=== PATIENT | male | born 1965 | race Caucasian/White ===

== ENCOUNTER 2023-07-05 15:47 | Observation (INO) ==
--- NOTE | 2023-07-05 16:14 | ED Triage Note ---
Date of Service July 05, 2023 History of Present Illness This patient was briefly evaluated while in triage. An abbreviated physical exam was performed. This patient is a 58-year-old Male who presents to the ED for evaluation of low hemoglobin. He was recently at [facility] for the same. He states he followed up with his PCP and they called him today to let him know his counts were low. He states he has been fatigue. Physical Exam VITALS: Vitals are noted on the nurse's note and reviewed by myself. GENERAL: This is a 58-year-old male, in no acute distress, well-developed well- nourished. SKIN: The skin was without rashes. EYES: Pupils equal round and reactive to light and accommodation. MOUTH: Mucous membranes moist. HEART: Regular rate and rhythm without murmurs gallops or rubs. LUNGS: Clear to auscultation bilaterally without wheezes, rales or rhonchi. NEURO: Patient was alert and oriented to person place and time. Initial orders for labs and / or imaging were placed and patient was placed in the waiting area until a bed is available. Please see further documentation for the full ED course. MDM / Impression Impression Impression: Acute GI bleeding, Symptomatic anemia
--- NOTE | 2023-07-05 17:29 | XRay Report ---
XR chest 1V portable HISTORY: 58 years-old Male Weakness COMPARISON: None TECHNIQUE: PA view of the chest FINDINGS: The cardiomediastinal and hilar silhouettes are within normal limits. Atherosclerosis of the aorta. N o pneumothorax, pleural effusion, airspace consolidation or pulmonary edema. Bones appear grossly int act. Mild linear scarring versus atelectasis of the left lung base. IMPRESSION: No acute process. ACT 112: Negative or not required by law. The above report was generated using voice recognition software. It may contain grammatical, syntax o r spelling errors. Electronically signed by: Stevan Buckley M.D. 07/05/2023 5:28 PM
[2023-07-05 18:37] LABS: Hematocrit (blood only) 23.3 % (42.0-52.0); Hemoglobin 6.6 g/dl (14.0-18.0); Mean Corpuscular Hemoglobin 18.3 pg (25.0-34.0); Mean Corpuscular Hgb Conc 28.3 g/dL (32.0-36.0); Mean Corpuscular Volume 64.7 fL (80.0-100.0); Mean Platelet Volume 8.3 fL (9.4-12.4); Platelet Count 334 K/uL (130-400); RDW Coefficient of Variation 22.5 % (11.5-14.5); RDW Standard Deviation 51.4 fL (36.4-46.3); White Blood Count 7.74 K/ul (4.8-10.8)
[2023-07-05 18:47] LABS: Albumin Globulin Ratio 1.3 (0.9-2); Albumin Level 4.6 gm/dl (3.4-5.0); BUN Creatinine Ratio 16.5 (10-20); Bilirubin,Total 0.8 mg/dl (0.2-1.0); Calcium 9.2 mg/dl (8.6-10.3); Creatinine Clr Calc Pharmacy 68.9 ml/min; Est GFR (African American) 85.1 ml/min; Est GFR (Non-African American) 73.4 ml/min; Globulin 3.5 gm/dl (2.5-4.0); Potassium 4.5 mmol/L (3.5-5.1); Total Protein 8.1 gm/dl (6.0-8.3)
[2023-07-05 18:56] LABS: Anisocytosis Present; Basophils # (auto) 0.09 K/uL (0.00-0.20); Basophils % (auto) 1.2 %; Eosinophils # (auto) 0.18 K/uL (0.00-0.50); Eosinophils % (auto) 2.3 %; Hypochromasia Present; Immature Granulocytes # (auto) 0.01 K/uL (0.01-0.20); Immature Granulocytes % (auto) 0.1 %; Lymphocytes # (auto) 1.61 K/uL (1.20-3.40); Lymphocytes % (auto) 20.8 %; Monocytes % (auto) 11.6 %; Neutrophils # (auto) 4.95 K/uL (1.40-6.50); Polychromasia 1+
[2023-07-05 19:05] LABS: Partial Thromboplastin Ratio 0.8; Partial Thromboplastin Time 23.2 Seconds (21.0-31.0)
[2023-07-05] MEDS ORDERED: SODIUM CHLORIDE 0.9% 250 ML IV PRN ×2 (19:26→23:00)
--- NOTE | 2023-07-05 19:30 | Emergency Department Note ---
Impression & Plan Acute GI bleeding, Symptomatic anemia ED Provider Note NAME: LYNETTE SOTO AGE: 58 SEX: M : 1965 ARRIVES VIA: Walk-In INFORMANT: Patient ED PROVIDER(S): Anatoliy Gay DO CHIEF COMPLAINT: low HGB HPI: Patient is a 58-year-old male who presents the ER for low hemoglobin referred in by his PCP. He admits to feeling lightheaded, weak, and rundown. He was called with a hemoglobin of 6. This occurred at the end of May. He denies any headache or change in vision. No chest pain or shortness of breath that is new. He notes he always has shortness of breath. No belly pain, nausea, vomiting, or diarrhea. No dysuria, urgency, or frequency. No other exacerbating or remitting factors. PAST MEDICAL HISTORY:See Below PAST SURGICAL HISTORY:See Below FAMILY HISTORY:See Below SOCIAL HISTORY:See Below HOME MEDICATIONS:See Below ALLERGIES:See Below VITALS:See Below PHYSICAL EXAMINATION: GENERAL: Sitting up in bed, alert, well appearing, well nourished, no distress, non-toxic EYE EXAM: normal conjunctiva. PERRL and EOM's grossly intact. OROPHARYNX: no exudate, no erythema, lips, buccal mucosa, and tongue normal and mucous membranes are moist NECK: supple, no nuchal rigidity, no adenopathy, non-tender LUNGS: Clear to auscultation. Normal chest wall mechanics HEART: no murmurs, S1 normal and S2 normal ABDOMEN: abdomen soft, non-tender, normo-active bowel sounds, no masses, no re bound or guarding. GI: Rectal heme positive UPPER EXTREMITIES: upper extremities are grossly normal. LOWER EXTREMITIES: No pitting edema. NEURO EXAM: Normal sensorium, cranial nerves II-XII grossly intact, normal speech, no gross weakness of arms, no gross weakness of legs. MEDICAL DECISION MAKING: Patient is a 58-year-old male who presents ER for the above-stated complaint. IV was established blood work was obtained. Labs show no significant leukocytosis. Mild anemia at 6.6. INR unremarkable. BMP along with LFTs and bilirubin was unremarkable. Alcohol was negative. Rectal was heme positive. Patient patient was typed and crossed and ordered 2 units of PRBCs. Updated bedside admitted to the hospital for further work-up. Discussed with Pt concerning signs and symptoms to watch out for. Pt was instructed to follow up with their PCP and discussed with the patient their option to return to the ED at anytime for persistent or worsening symptoms. The appropriate anticipatory guidance and out-patient management, including indications for return to the emergency department, were explained at length to the patient and understood. Triage Nursing notes reviewed. Limited review of prior medical records performed Vital Signs: reviewed and remarkable for no significant abnormalities Differential diagnosis: Differential diagnosis includes etiologies such as diverticulitis, diverticulosis, AVM, coagulopathy, colitis, inflammatory bowel disease, malignancy, Radha-Tena tear, esophagitis, peptic ulcer disease, variceal bleed, gastritis, epistaxis, fissure, hemorrhoids, as well as others were e ntertained. ER treatment provided: See below Diagnostics interpreted by me include EKG and cardiac monitoring as listed below: -Cardiac Monitoring: An order was placed for continuous cardiac monitoring. The monitor shows a rate of 70 with sinus rhythm. -ECG: none -Laboratory studies:Interpreted by me as stated above in MDM and shown below. Imaging studies: Xrays: As interpreted by me: Portable AP upright 1 view of the chest shows no focal infiltrate CTs show: none Consultation(s): As described in MDM Procedures:none Critical Care: I have personally spent 32 minutes of critical care time in the direct management of this patient. This includes bedside care, interpretation of diagnostic studies, and testing, discussion with consultants, patient, and family members, and other required patient management activities. This 32 minutes is in excess of all separately billable procedures. Past Med/Surg History Social History Smoking Status: Current some day smoker Hx Alcohol Use: Yes Hx Substance Use: No Preferred Language: Emirati Communication Ability: Effective Trial Attorney Required: No Beliefs That Will Affect Care: None Current Living Situation: Alone Feels Safe at Home: Yes Safety Concerns: Feels Safe At This Time Assistive Devices: None Allergies Allergies Allergy/AdvReac Type Severity Reaction Status Date / Time Iodinated Contrast Media Allergy Hives Verified 07/05/23 20:08 Home Meds Home Medications Medication Instructions Recorded Confirmed amlodipine 10 mg-benazepril 20 mg 1 cap PO QAM 07/05/23 07/05/23 capsule aspirin 81 mg tablet,delayed 81 mg PO DAILY 07/05/23 07/05/23 release atorvastatin 40 mg tablet 40 mg PO QAM 07/05/23 07/05/23 clopidogrel 75 mg tablet 75 mg PO DAILY 07/05/23 07/05/23 Results & Data (ED) Vital Signs Vital Signs - 24 hr 07/05/23 16:11 Temperature 36.8 C Temperature Source Temporal Artery Scan Pulse Rate 77 Respiratory Rate 18 Respiratory Effort / Characteristics Non-Labored Respiratory Depth Normal Blood Pressure 151/78 H Blood Pressure Mean 102 Pulse Oximetry 98 Oxygen Delivery Method Room Air Sepsis Recent Fever Within 48 Hours No Sepsis New/Unexplained Change in Mental Status No Sepsis Action Taken by Nursing No Action Required Laboratory Data 07/05/23 18:14 07/05/23 18:14 Lab Results 07/05/23 07/05/23 07/05/23 Range/Units 18:14 18:14 18:14 WBC 7.74 (4.8-10.8) K/ul RBC 3.60 L (4.70-6.10) M/uL Hgb 6.6 L* (14.0-18.0) g/dl Hct 23.3 L (42.0-52.0) % MCV 64.7 L (80.0-100.0) fL MCH 18.3 L (25.0-34.0) pg MCHC 28.3 L (32.0-36.0) g/dL RDW Std Deviation 51.4 H (36.4-46.3) fL RDW Coeff of Star 22.5 H (11.5-14.5) % Plt Count 334 (130-400) K/uL MPV 8.3 L (9.4-12.4) fL Immature Gran % (Auto) 0.1 % Neut % (Auto) 64.0 % Lymph % (Auto) 20.8 % [place] % (Auto) 11.6 % Eos % (Auto) 2.3 % Baso % (Auto) 1.2 % Reticulocyte % (Auto) (0.5-2.0) % Neut # (Auto) 4.95 (1.40-6.50) K/uL Lymph # (Auto) 1.61 (1.20-3.40) K/uL [place] # (Auto) 0.90 H (0.11-0.59) K/uL Eos # (Auto) 0.18 (0.00-0.50) K/uL Baso # (Auto) 0.09 (0.00-0.20) K/uL Reticulocyte # (0.02-0.10) 10^6/uL Immature Gran # (Auto) 0.01 (0.01-0.20) K/uL Polychromasia 1+ Hypochromasia Present Anisocytosis Present PT 11.0 (9.0-12.0) Seconds INR 1.0 (0.9-1.1) APTT 23.2 (21.0-31.0) Seconds PTT Ratio 0.8 Sodium (136-145) mmol/L Potassium (3.5-5.1) mmol/L Chloride (98-107) mmol/L Carbon Dioxide (21-32) mmol/L Anion Gap (3-11) BUN (6-23) mg/dl Creatinine (0.6-1.4) mg/dl Est Cr Clr Drug Dosing ml/min Est GFR ( Amer) ml/min Est GFR (Non-Af Amer) ml/min BUN/Creatinine Ratio (10-20) Glucose (70-99(Fasting)) mg/dl Calcium (8.6-10.3) mg/dl Magnesium (1.7-2.4) mg/dl Iron (35-175) mcg/dl Transferrin (200-360) mg/dl Ferritin (8-388) ng/ml Total Bilirubin (0.2-1.0) mg/dl AST (13-39) U/L ALT (7-52) U/L Alkaline Phosphatase (34-104) U/L Total Protein (6.0-8.3) gm/dl Albumin (3.4-5.0) gm/dl Globulin (2.5-4.0) gm/dl Albumin/Globulin Ratio (0.9-2) Vitamin B12 (180-914) pg/ml Folate (>5.38) ng/ml TSH (0.300-4.500) uIu/ml Ethyl Alcohol mg/dL (<10.0) mg/dl Blood Type A Positive Blood Type Recheck Antibody Screen NEGATIVE Crossmatch See Detail 07/05/23 07/05/23 07/05/23 Range/Units 18:14 19:48 19:55 WBC (4.8-10.8) K/ul RBC (4.70-6.10) M/uL Hgb (14.0-18.0) g/dl Hct (42.0-52.0) % MCV (80.0-100.0) fL MCH (25.0-34.0) pg MCHC (32.0-36.0) g/dL RDW Std Deviation (36.4-46.3) fL RDW Coeff of Star (11.5-14.5) % Plt Count (130-400) K/uL MPV (9.4-12.4) fL Immature Gran % (Auto) % Neut % (Auto) % Lymph % (Auto) % [place] % (Auto) % Eos % (Auto) % Baso % (Auto) % Reticulocyte % (Auto) (0.5-2.0) % Neut # (Auto) (1.40-6.50) K/uL Lymph # (Auto) (1.20-3.40) K/uL [place] # (Auto) (0.11-0.59) K/uL Eos # (Auto) (0.00-0.50) K/uL Baso # (Auto) (0.00-0.20) K/uL Reticulocyte # (0.02-0.10) 10^6/uL Immature Gran # (Auto) (0.01-0.20) K/uL Polychromasia Hypochromasia Anisocytosis PT (9.0-12.0) Seconds INR (0.9-1.1) APTT (21.0-31.0) Seconds PTT Ratio Sodium 133 L (136-145) mmol/L Potassium 4.5 (3.5-5.1) mmol/L Chloride 102 (98-107) mmol/L Carbon Dioxide 23 (21-32) mmol/L Anion Gap 8 (3-11) BUN 18 (6-23) mg/dl Creatinine 1.09 (0.6-1.4) mg/dl Est Cr Clr Drug Dosing 68.9 ml/min Est GFR ( Amer) 85.1 ml/min Est GFR (Non-Af Amer) 73.4 ml/min BUN/Creatinine Ratio 16.5 (10-20) Glucose 105 H (70-99(Fasting)) mg/dl Calcium 9.2 (8.6-10.3) mg/dl Magnesium 2.3 (1.7-2.4) mg/dl Iron 13 L (35-175) mcg/dl Transferrin 399 H (200-360) mg/dl Ferritin 3.2 L (8-388) ng/ml Total Bilirubin 0.8 (0.2-1.0) mg/dl AST 24 (13-39) U/L ALT 29 (7-52) U/L Alkaline Phosphatase 49 (34-104) U/L Total Protein 8.1 (6.0-8.3) gm/dl Albumin 4.6 (3.4-5.0) gm/dl Globulin 3.5 (2.5-4.0) gm/dl Albumin/Globulin Ratio 1.3 (0.9-2) Vitamin B12 (180-914) pg/ml Folate (>5.38) ng/ml TSH (0.300-4.500) uIu/ml Ethyl Alcohol mg/dL (<10.0) mg/dl Blood Type Blood Type Recheck A Positive Antibody Screen Crossmatch 07/05/23 07/05/23 07/05/23 Range/Units 19:55 19:55 19:55 WBC (4.8-10.8) K/ul RBC (4.70-6.10) M/uL Hgb (14.0-18.0) g/dl Hct (42.0-52.0) % MCV (80.0-100.0) fL MCH (25.0-34.0) pg MCHC (32.0-36.0) g/dL RDW Std Deviation (36.4-46.3) fL RDW Coeff of Star (11.5-14.5) % Plt Count (130-400) K/uL MPV (9.4-12.4) fL Immature Gran % (Auto) % Neut % (Auto) % Lymph % (Auto) % [place] % (Auto) % Eos % (Auto) % Baso % (Auto) % Reticulocyte % (Auto) 1.9 (0.5-2.0) % Neut # (Auto) (1.40-6.50) K/uL Lymph # (Auto) (1.20-3.40) K/uL [place] # (Auto) (0.11-0.59) K/uL Eos # (Auto) (0.00-0.50) K/uL Baso # (Auto) (0.00-0.20) K/uL Reticulocyte # 0.06 (0.02-0.10) 10^6/uL Immature Gran # (Auto) (0.01-0.20) K/uL Polychromasia Hypochromasia Anisocytosis PT (9.0-12.0) Seconds INR (0.9-1.1) APTT (21.0-31.0) Seconds PTT Ratio Sodium (136-145) mmol/L Potassium (3.5-5.1) mmol/L Chloride (98-107) mmol/L Carbon Dioxide (21-32) mmol/L Anion Gap (3-11) BUN (6-23) mg/dl Creatinine (0.6-1.4) mg/dl Est Cr Clr Drug Dosing ml/min Est GFR ( Amer) ml/min Est GFR (Non-Af Amer) ml/min BUN/Creatinine Ratio (10-20) Glucose (70-99(Fasting)) mg/dl Calcium (8.6-10.3) mg/dl Magnesium (1.7-2.4) mg/dl Iron (35-175) mcg/dl Transferrin (200-360) mg/dl Ferritin (8-388) ng/ml Total Bilirubin (0.2-1.0) mg/dl AST (13-39) U/L ALT (7-52) U/L Alkaline Phosphatase (34-104) U/L Total Protein (6.0-8.3) gm/dl Albumin (3.4-5.0) gm/dl Globulin (2.5-4.0) gm/dl Albumin/Globulin Ratio (0.9-2) Vitamin B12 270 (180-914) pg/ml Folate 14.61 (>5.38) ng/ml TSH (0.300-4.500) uIu/ml Ethyl Alcohol mg/dL < 10.0 (<10.0) mg/dl Blood Type Blood Type Recheck Antibody Screen Crossmatch 07/05/23 Range/Units 19:55 WBC (4.8-10.8) K/ul RBC (4.70-6.10) M/uL Hgb (14.0-18.0) g/dl Hct (42.0-52.0) % MCV (80.0-100.0) fL MCH (25.0-34.0) pg MCHC (32.0-36.0) g/dL RDW Std Deviation (36.4-46.3) fL RDW Coeff of Star (11.5-14.5) % Plt Count (130-400) K/uL MPV (9.4-12.4) fL Immature Gran % (Auto) % Neut % (Auto) % Lymph % (Auto) % [place] % (Auto) % Eos % (Auto) % Baso % (Auto) % Reticulocyte % (Auto) (0.5-2.0) % Neut # (Auto) (1.40-6.50) K/uL Lymph # (Auto) (1.20-3.40) K/uL [place] # (Auto) (0.11-0.59) K/uL Eos # (Auto) (0.00-0.50) K/uL Baso # (Auto) (0.00-0.20) K/uL Reticulocyte # (0.02-0.10) 10^6/uL Immature Gran # (Auto) (0.01-0.20) K/uL Polychromasia Hypochromasia Anisocytosis PT (9.0-12.0) Seconds INR (0.9-1.1) APTT (21.0-31.0) Seconds PTT Ratio Sodium (136-145) mmol/L Potassium (3.5-5.1) mmol/L Chloride (98-107) mmol/L Carbon Dioxide (21-32) mmol/L Anion Gap (3-11) BUN (6-23) mg/dl Creatinine (0.6-1.4) mg/dl Est Cr Clr Drug Dosing ml/min Est GFR ( Amer) ml/min Est GFR (Non-Af Amer) ml/min BUN/Creatinine Ratio (10-20) Glucose (70-99(Fasting)) mg/dl Calcium (8.6-10.3) mg/dl Magnesium (1.7-2.4) mg/dl Iron (35-175) mcg/dl Transferrin (200-360) mg/dl Ferritin (8-388) ng/ml Total Bilirubin (0.2-1.0) mg/dl AST (13-39) U/L ALT (7-52) U/L Alkaline Phosphatase (34-104) U/L Total Protein (6.0-8.3) gm/dl Albumin (3.4-5.0) gm/dl Globulin (2.5-4.0) gm/dl Albumin/Globulin Ratio (0.9-2) Vitamin B12 (180-914) pg/ml Folate (>5.38) ng/ml TSH 2.380 (0.300-4.500) uIu/ml Ethyl Alcohol mg/dL (<10.0) mg/dl Blood Type Blood Type Recheck Antibody Screen Crossmatch Administered Medications Sodium Chloride (Nss) 1,000 mls @ 60 mls/hr IV .[id number] ONE Stop: 07/06/23 12:18 Last Admin: 07/05/23 21:31 Dose: 60 mls/hr Documented By: LAURA Pantoprazole Sodium 40 mg/ (Dextrose) 100 mls @ 20 mls/hr IV Q5H STEPHANIE Stop: 08/04/23 20:59 Last Admin: 07/05/23 22:14 Dose: 8 mg/hr, 20 mls/hr Documented By: LAURA Discontinued Medications Thiamine HCl 100 mg/ Syringe 10 mls @ 2 mls/min IV NOW STA Stop: 07/05/23 19:47 Last Admin: 07/05/23 20:15 Dose: 2 mls/min Documented By: LAURA Pantoprazole Sodium 80 mg/ (Dextrose) 120 mls @ 400 mls/hr IV NOW ONE Stop: 07/05/23 20:57 Last Infusion: 07/05/23 22:03 Dose: 0 mls/hr Documented By: Admin: 07/05/23 21:32 Dose: 400 mls/hr Documented By: LAURA Imaging Data Radiologist's Impression: Chest X-Ray 07/05/23 16:14 XR chest 1V portable HISTORY: 58 years-old Male Weakness COMPARISON: None TECHNIQUE: PA view of the chest FINDINGS: The cardiomediastinal and hilar silhouettes are within normal limits. Atherosclerosis of the aorta. No pneumothorax, pleural effusion, airspace consolidation or pulmonary edema. Bones appear grossly intact. Mild linear scarring versus atelectasis of the left lung base. IMPRESSION: No acute process. ACT 112: Negative or not required by law. The above report was generated using voice recognition software. It may contain grammatical, syntax or spelling errors. Electronically signed by: Stevan Buckley M.D. 07/05/2023 5:28 PM Discharge Plan Visit Data Chief Complaint: Referred by Doctor Stated Complaint: REF BY ED Provider: Anatoliy Gay Discharge Problem: Acute GI bleeding, Symptomatic anemia Patient Disposition: Admitted As Inpatient Discharge Instructions Interventions: ED Discharge Assessment Last Done: 07/05/23 22:22
[2023-07-05] MEDS ORDERED: SODIUM CHLORIDE 0.9% 1,000 ML IV ONE (19:39)
[2023-07-05] MEDS ORDERED: THIAMINE HCL 100 MG in SYRINGE 9 ML IV STA (19:43)
[2023-07-05 20:19] LABS: Reticulocyte % 1.9 % (0.5-2.0); Reticulocytes # 0.06 10^6/uL (0.02-0.10)
[2023-07-05 20:31] LABS: Magnesium 2.3 mg/dl (1.7-2.4)
[2023-07-05] MEDS ORDERED: PANTOPRAZOLE BOLUS/DRIP IV STA (20:40)
[2023-07-05] MEDS ORDERED: PANTOprazole 80 MG in DEXTROSE 5% 100 ML IV ONE (20:40)
--- NOTE | 2023-07-05 20:42 | History & Physical Report ---
Date of Service July 05, 2023 Assessment & Plan (1) Symptomatic anemia: Plan: Acute on chronic anemia, hemoglobin drop from baseline Secondary to UGIB Positive FOBT at the ER. History PAD status post recent surgery on antiplatelet Rx hypertension, stable hyperlipidemia, on statin Rx hx HCV status post treatment, patient unaware of diagnosis/treatment documented in outpatient records ongoing alcohol abuse past tobacco abuse Medical telemetry Anemia work-up Transfuse PRBC to maintain hemoglobin of at least 8 Appropriate to hold antiplatelet Rx for now given GI bleed causing symptomatic anemia IV PPI GI consult re: UGIB N.p.o. until patient seen by GI in anticipation of endoscopy DT precautions, initiate SARA S if with signs of alcohol withdrawal DVT prophylaxis. TEDS (chemical prophylaxis contraindicated with GI bleed, SCDs contraindicated with PAD) DNR Patient daughter requesting updates providers. Gerard Mckeon, contact #[phone]. Text document was generated using [employer] voice recognition software. It may contain grammatical or spelling errors. Kindly contact undersigned for clarification of any documentation item in question. History of Present Illness Chief Complaint: Abnormal blood work Primary Care Provider: Russ Ricks MD History obtained from patient, family, and records. Medical history significant for PAD status post surgery, hypertension, hyperlipidemia, hx HCV status post treatment as per records (patient unaware of diagnosis), chronic anemia (baseline hemoglobin of 7-8), ongoing alcohol abuse, past tobacco abuse. Recent confinement at [facility] under Vascular Surgery service for PVD status post left femoral endarterectomy with pericardial patch angioplasty and subsequent stent placement. 1 unit packed RBC transfused with postprocedural hemoglobin of 6.4. Hemoglobin 8 at time of discharge. Plavix added to patient's aspirin on discharge. Future vascular procedure for right lower extremity contemplated as per patient. Patient did not feel well after first dose of Plavix. Fatigue with intermittent dark stools. No belly pain, no headache. Patient did not mention symptoms to vascular surgeon on follow-up visit last month. Patient seen at PCPs office last June 27 for follow-up visit. Patient verbalized 'feeling off'. Outpatient labs ordered by PCP with hemoglobin noted to be 6.3. Outpatient provider unable to reach patient regarding blood work over the phone as per documentation. Outpatient Arrangements for outpatient colonoscopy made (tentative schedule October,). Outpatient hematology evaluation contemplated. Patient finally returned PCP office call today. Patient directed to ER with patient verbalizing dizziness complaints. Positive FOBT at the ER. Medical History as above Surgical History : Vascular procedures, hernia repair, tonsillectomy, orbital trauma surgery Family History : Heart disease Personal/Social history : Past tobacco abuse, alcohol abuse, [employer] maintenance work Allergies Allergy/AdvReac Type Severity Reaction Status Date / Time Iodinated Contrast Media Allergy Hives Verified 07/05/23 20:08 Home Medications Medication Instructions Recorded Confirmed Type amlodipine 10 mg-benazepril 20 mg 1 cap PO QAM 07/05/23 07/05/23 History capsule aspirin 81 mg tablet,delayed 81 mg PO DAILY 07/05/23 07/05/23 History release atorvastatin 40 mg tablet 40 mg PO QAM 07/05/23 07/05/23 History clopidogrel 75 mg tablet 75 mg PO DAILY 07/05/23 07/05/23 History Past Med/Surg History Social History Smoking Status: Current some day smoker Hx Alcohol Use: Yes Hx Substance Use: No Preferred Language: Occitan Communication Ability: Effective Revenue Liaison Required: No Beliefs That Will Affect Care: None Current Living Situation: Alone Feels Safe at Home: Yes Safety Concerns: Feels Safe At This Time Assistive Devices: None Review of Systems Review of Systems: As per HPI, all other systems reviewed and negative Physical Exam Physical Exam: GENERAL: Comfortable, pleasant, no respiratory distress SKIN: Pallor, warm HEENT: [place] palpebral conjunctivae, no ptosis, dry buccal mucosa NECK : Supple, no tenderness CHEST : The bedside once, no tenderness HEART : RRR, no obvious murmurs ABDOMEN: Some distention, nontender EXTREMITIES : No LE swelling/tenderness, no other conspicuous deformities noted NEUROLOGIC : Coherent, no facial asymmetry, no other gross focality Results & Data Results & Data Vital Signs (Past 12 Hours) Vital Signs Temp Pulse Resp BP Pulse Ox O2 Del Method 07/05/23 16:11 36.8 C 77 18 151/78 H 98 Room Air Laboratory Results Laboratory Results WBC 7.74 K/ul (4.8-10.8) 07/05/23 18:14 RBC 3.60 M/uL (4.70-6.10) L 07/05/23 18:14 Hgb 6.6 g/dl (14.0-18.0) L* 07/05/23 18:14 Hct 23.3 % (42.0-52.0) L 07/05/23 18:14 MCV 64.7 fL (80.0-100.0) L 07/05/23 18:14 MCH 18.3 pg (25.0-34.0) L 07/05/23 18:14 MCHC 28.3 g/dL (32.0-36.0) L 07/05/23 18:14 RDW Std Deviation 51.4 fL (36.4-46.3) H 07/05/23 18:14 RDW Coeff of Star 22.5 % (11.5-14.5) H 07/05/23 18:14 Plt Count 334 K/uL (130-400) 07/05/23 18:14 MPV 8.3 fL (9.4-12.4) L 07/05/23 18:14 Immature Gran % (Auto) 0.1 % 07/05/23 18:14 Neut % (Auto) 64.0 % 07/05/23 18:14 Lymph % (Auto) 20.8 % 07/05/23 18:14 Angelina % (Auto) 11.6 % 07/05/23 18:14 Eos % (Auto) 2.3 % 07/05/23 18:14 Baso % (Auto) 1.2 % 07/05/23 18:14 Reticulocyte % (Auto) 1.9 % (0.5-2.0) 07/05/23 19:55 Neut # (Auto) 4.95 K/uL (1.40-6.50) 07/05/23 18:14 Lymph # (Auto) 1.61 K/uL (1.20-3.40) 07/05/23 18:14 Angelina # (Auto) 0.90 K/uL (0.11-0.59) H 07/05/23 18:14 Eos # (Auto) 0.18 K/uL (0.00-0.50) 07/05/23 18:14 Baso # (Auto) 0.09 K/uL (0.00-0.20) 07/05/23 18:14 Reticulocyte # 0.06 10^6/uL (0.02-0.10) 07/05/23 19:55 Immature Gran # (Auto) 0.01 K/uL (0.01-0.20) 07/05/23 18:14 Polychromasia 1+ 07/05/23 18:14 Hypochromasia Present 07/05/23 18:14 Anisocytosis Present 07/05/23 18:14 PT 11.0 Seconds (9.0-12.0) 07/05/23 18:14 INR 1.0 (0.9-1.1) 07/05/23 18:14 APTT 23.2 Seconds (21.0-31.0) 07/05/23 18:14 PTT Ratio 0.8 07/05/23 18:14 Sodium 133 mmol/L (136-145) L 07/05/23 18:14 Potassium 4.5 mmol/L (3.5-5.1) 07/05/23 18:14 Chloride 102 mmol/L (98-107) 07/05/23 18:14 Carbon Dioxide 23 mmol/L (21-32) 07/05/23 18:14 Anion Gap 8 (3-11) 07/05/23 18:14 BUN 18 mg/dl (6-23) 07/05/23 18:14 Creatinine 1.09 mg/dl (0.6-1.4) 07/05/23 18:14 Est Cr Clr Drug Dosing 68.9 ml/min 07/05/23 18:14 Est GFR ( Amer) 85.1 ml/min 07/05/23 18:14 Est GFR (Non-Af Amer) 73.4 ml/min 07/05/23 18:14 BUN/Creatinine Ratio 16.5 (10-20) 07/05/23 18:14 Glucose 105 mg/dl (70-99(Fasting)) H 07/05/23 18:14 Calcium 9.2 mg/dl (8.6-10.3) 07/05/23 18:14 Magnesium 2.3 mg/dl (1.7-2.4) 07/05/23 19:55 Iron 13 mcg/dl (35-175) L 07/05/23 19:55 Transferrin 399 mg/dl (200-360) H 07/05/23 19:55 Total Bilirubin 0.8 mg/dl (0.2-1.0) 07/05/23 18:14 AST 24 U/L (13-39) 07/05/23 18:14 ALT 29 U/L (7-52) 07/05/23 18:14 Alkaline Phosphatase 49 U/L (34-104) 07/05/23 18:14 Total Protein 8.1 gm/dl (6.0-8.3) 07/05/23 18:14 Albumin 4.6 gm/dl (3.4-5.0) 07/05/23 18:14 Globulin 3.5 gm/dl (2.5-4.0) 07/05/23 18:14 Albumin/Globulin Ratio 1.3 (0.9-2) 07/05/23 18:14 Ethyl Alcohol mg/dL < 10.0 mg/dl (<10.0) 07/05/23 19:55 Blood Type A Positive 07/05/23 18:14 Blood Type Recheck A Positive 07/05/23 19:48 Antibody Screen NEGATIVE 07/05/23 18:14 Crossmatch See Detail 07/05/23 18:14 Impressions Chest X-Ray 07/05/23 16:14 XR chest 1V portable HISTORY: 58 years-old Male Weakness COMPARISON: None TECHNIQUE: PA view of the chest FINDINGS: The cardiomediastinal and hilar silhouettes are within normal limits. Atherosclerosis of the aorta. No pneumothorax, pleural effusion, airspace consolidation or pulmonary edema. Bones appear grossly intact. Mild linear scarring versus atelectasis of the left lung base. IMPRESSION: No acute process. ACT 112: Negative or not required by law. The above report was generated using voice recognition software. It may contain grammatical, syntax or spelling errors. Electronically signed by: Stevan Buckley M.D. 07/05/2023 5:28 PM
[2023-07-05] MEDS ORDERED: LORazepam 2 MG/1 ML VIAL IV PRN (20:46)
[2023-07-05] MEDS ORDERED: PROMETHAZINE HCL 6.25 MG in SODIUM CHLORIDE 0.9% 50 ML IV PRN (20:46)
[2023-07-05] MEDS ORDERED: ACETAMINOPHEN 500 MG TAB PO PRN (20:46)
[2023-07-05] MEDS ORDERED: oxyCODONE HCL IR 5 MG TAB (IMMEDIATE RELEASE) PO PRN (20:46)
[2023-07-05 20:51] LABS: Ferritin 3.2 ng/ml (8-388)
[2023-07-05 20:57] LABS: Folate (Folic Acid),Ser orPlas 14.61 ng/ml (>5.38)
[2023-07-05] MEDS: PANTOprazole 40 MG in DEXTROSE 5% 100 ML IV SCH (22:14)
[2023-07-06] MEDS: PANTOprazole 40 MG in DEXTROSE 5% 100 ML IV SCH ×5 (02:11→22:05)
[2023-07-06] MEDS: amLODIPine BESYLATE 5 MG TAB PO SCH (08:04)
[2023-07-06] MEDS: ATORVASTATIN 40 MG TAB PO SCH (08:04)
[2023-07-06] MEDS: MULTIVITAMIN TAB PO SCH (08:04)
[2023-07-06] MEDS: ENALAPRIL MALEATE 10 MG TAB PO SCH (08:04)
[2023-07-06] MEDS: FOLIC ACID 1 MG TAB PO SCH (08:04)
[2023-07-06] MEDS: THIAMINE HCL 100 MG TAB PO SCH (08:04)
[2023-07-06 08:16] LABS: Hematocrit (blood only) 28.9 % (42.0-52.0); Hemoglobin 8.6 g/dl (14.0-18.0); Mean Corpuscular Hemoglobin 20.6 pg (25.0-34.0); Mean Corpuscular Hgb Conc 29.8 g/dL (32.0-36.0); Mean Corpuscular Volume 69.3 fL (80.0-100.0); Mean Platelet Volume 8.7 fL (9.4-12.4); Platelet Count 266 K/uL (130-400); RDW Coefficient of Variation 21.9 % (11.5-14.5); RDW Standard Deviation 54.5 fL (36.4-46.3); Red Blood Count 4.17 M/uL (4.70-6.10)
[2023-07-06 08:30] LABS: BUN Creatinine Ratio 15.1 (10-20); Calcium 8.7 mg/dl (8.6-10.3); Creatinine Clr Calc Pharmacy 89.4 ml/min; Est GFR (African American) 109.2 ml/min; Est GFR (Non-African American) 94.3 ml/min; Potassium 4.1 mmol/L (3.5-5.1)
[2023-07-06 08:34] LABS: Anisocytosis Present; Basophils # (auto) 0.09 K/uL (0.00-0.20); Basophils % (auto) 1.9 %; Eosinophils # (auto) 0.27 K/uL (0.00-0.50); Eosinophils % (auto) 5.6 %; Hypochromasia Present; Immature Granulocytes # (auto) 0.02 K/uL (0.01-0.20); Immature Granulocytes % (auto) 0.4 %; Lymphocytes # (auto) 1.45 K/uL (1.20-3.40); Lymphocytes % (auto) 30.2 %; Microcytosis Present; Monocytes # (auto) 0.66 K/uL (0.11-0.59); Monocytes % (auto) 13.8 %; Neutrophils # (auto) 2.31 K/uL (1.40-6.50); Neutrophils % (auto) 48.1 %; Polychromasia 2+
--- NOTE | 2023-07-06 09:31 | Hospitalist Progress Note ---
Date of Service July 06, 2023 Assessment & Plan (1) Symptomatic anemia: Plan: Acute on chronic anemia, hemoglobin drop from baseline Secondary to UGIB Positive FOBT at the ER. History PAD status post recent surgery on antiplatelet Rx Admitted to Medical telemetry Anemia work-up Transfuse PRBC to maintain hemoglobin of at least 8 Appropriate to hold antiplatelet Rx for now given GI bleed causing symptomatic anemia IV PPI GI consult re: GIB - plan EGD/colonoscopy on Sunday 07/08 Ongoing alcohol abuse DT precautions, initiate SARA S if with signs of alcohol withdrawal Hypertension, stable Hyperlipidemia, on statin Rx Hx HCV status post treatment, patient unaware of diagnosis/treatment documented in outpatient records past tobacco abuse DVT prophylaxis. TEDS (chemical prophylaxis contraindicated with GI bleed, SCDs contraindicated with PAD) DNR Patient daughter - Ms. Gerard Mckeon, contact #[phone]. Admission and Anticipated Discharge Date Admission Date: July 05, 2023 Subjective Pt seen in follow up of anemia, melena, pt started on dual antiplatelet therapy after vasc. procedure Currently laying in bed in NAD No fever, chills, chest pain, shortness of breath reports feet pain/ numbness have been bothering him for a long time, was hoping for some relief after vasc. procedure Seen by GI - plan for EGD and colonoscopy on Saturday Review of Systems Review of Systems: All systems reviewed & are unremarkable except as noted in Subjective Physical Exam Physical Exam: GENERAL: WD/WN in NAD HEENT: NC/AT, [place] palpebral conjunctivae, no ptosis NECK : Supple, no tenderness HEART : RRR, no obvious murmurs ABDOMEN: Some distention, nontender, soft, + bowel sounds EXTREMITIES : No LE swelling/tenderness, moves extremities NEUROLOGIC : Coherent, no facial asymmetry, speech fluent, moves extremities SKIN: warm, dry Results & Data Results & Data Vital Signs (Past 12 Hours) Vital Signs Temp Pulse Pulse Resp BP BP Pulse Ox 07/06/23 07:28 36.7 C 82 16 135/68 96 07/06/23 07:08 79 07/06/23 04:20 36.8 C 82 20 137/73 94 07/05/23 23:30 36.5 C 90 18 136/84 98 07/06/23 00:00 36.5 C 83 18 146/68 H 98 07/06/23 00:20 36.9 C 81 18 129/63 96 07/06/23 00:50 37.0 C 80 18 136/66 97 07/06/23 01:05 36.7 C 75 18 137/82 96 07/06/23 01:20 36.5 C 76 18 139/74 94 07/06/23 01:50 36.5 C 74 18 127/70 95 07/06/23 02:50 36.8 C 82 18 137/73 94 07/06/23 03:15 36.6 C 78 18 150/70 H 97 07/06/23 01:05 36.7 C 75 18 137/82 96 07/06/23 00:48 37.0 C 80 18 136/66 97 07/06/23 00:47 37.0 C 80 18 136/66 97 07/05/23 23:26 07/05/23 23:26 36.5 C 90 18 136/84 98 07/05/23 23:24 36.5 C 81 18 149/71 H 98 07/05/23 23:08 36.5 C 91 H 18 136/84 98 07/05/23 23:08 07/05/23 22:32 36.9 C 71 18 160/78 H 99 07/05/23 22:22 36.9 C 71 18 162/78 H 99 07/05/23 22:02 36.9 C 71 18 149/81 H 99 07/05/23 21:32 36.9 C 77 18 153/79 H 98 Pulse Ox O2 Del Method O2 Del Method 07/06/23 07:28 Room Air 07/06/23 07:08 07/06/23 04:20 Room Air 07/05/23 23:30 07/06/23 00:00 07/06/23 00:20 07/06/23 00:50 07/06/23 01:05 07/06/23 01:20 07/06/23 01:50 07/06/23 02:50 07/06/23 03:15 07/06/23 01:05 07/06/23 00:48 07/06/23 00:47 07/05/23 23:26 Room Air 07/05/23 23:26 Room Air 07/05/23 23:24 Room Air 07/05/23 23:08 Room Air 07/05/23 23:08 98 Room Air 07/05/23 22:32 07/05/23 22:22 Room Air 07/05/23 22:02 07/05/23 21:32 Laboratory Results 07/06/23 07/06/23 07/05/23 Range/Units 06:49 06:49 19:55 WBC 4.80 (4.8-10.8) K/ul RBC 4.17 L (4.70-6.10) M/uL Hgb 8.6 L (14.0-18.0) g/dl Hct 28.9 L (42.0-52.0) % MCV 69.3 L D (80.0-100.0) fL MCH 20.6 L (25.0-34.0) pg MCHC 29.8 L (32.0-36.0) g/dL RDW Std Deviation 54.5 H (36.4-46.3) fL RDW Coeff of Star 21.9 H (11.5-14.5) % Plt Count 266 (130-400) K/uL MPV 8.7 L (9.4-12.4) fL Immature Gran % (Auto) 0.4 % Neut % (Auto) 48.1 % Lymph % (Auto) 30.2 % [place] % (Auto) 13.8 % Eos % (Auto) 5.6 % Baso % (Auto) 1.9 % Reticulocyte % (Auto) (0.5-2.0) % Neut # (Auto) 2.31 (1.40-6.50) K/uL Lymph # (Auto) 1.45 (1.20-3.40) K/uL [place] # (Auto) 0.66 H (0.11-0.59) K/uL Eos # (Auto) 0.27 (0.00-0.50) K/uL Baso # (Auto) 0.09 (0.00-0.20) K/uL Reticulocyte # (0.02-0.10) 10^6/uL Immature Gran # (Auto) 0.02 (0.01-0.20) K/uL Polychromasia 2+ Hypochromasia Present Anisocytosis Present Microcytosis Present PT (9.0-12.0) Seconds INR (0.9-1.1) APTT (21.0-31.0) Seconds PTT Ratio Sodium 136 (136-145) mmol/L Potassium 4.1 (3.5-5.1) mmol/L Chloride 108 H (98-107) mmol/L Carbon Dioxide 23 (21-32) mmol/L Anion Gap 5 (3-11) BUN 13 (6-23) mg/dl Creatinine 0.86 (0.6-1.4) mg/dl Est Cr Clr Drug Dosing 89.4 ml/min Est GFR ( Amer) 109.2 ml/min Est GFR (Non-Af Amer) 94.3 ml/min BUN/Creatinine Ratio 15.1 (10-20) Glucose 103 H (70-99(Fasting)) mg/dl Calcium 8.7 (8.6-10.3) mg/dl Magnesium (1.7-2.4) mg/dl Iron (35-175) mcg/dl Transferrin (200-360) mg/dl Ferritin (8-388) ng/ml Total Bilirubin (0.2-1.0) mg/dl AST (13-39) U/L ALT (7-52) U/L Alkaline Phosphatase (34-104) U/L Total Protein (6.0-8.3) gm/dl Albumin (3.4-5.0) gm/dl Globulin (2.5-4.0) gm/dl Albumin/Globulin Ratio (0.9-2) Vitamin B12 (180-914) pg/ml Folate (>5.38) ng/ml TSH 2.380 (0.300-4.500) uIu/ml Ethyl Alcohol mg/dL (<10.0) mg/dl Blood Type Blood Type Recheck Antibody Screen Crossmatch 07/05/23 07/05/23 07/05/23 Range/Units 19:55 19:55 19:55 WBC (4.8-10.8) K/ul RBC (4.70-6.10) M/uL Hgb (14.0-18.0) g/dl Hct (42.0-52.0) % MCV (80.0-100.0) fL MCH (25.0-34.0) pg MCHC (32.0-36.0) g/dL RDW Std Deviation (36.4-46.3) fL RDW Coeff of Star (11.5-14.5) % Plt Count (130-400) K/uL MPV (9.4-12.4) fL Immature Gran % (Auto) % Neut % (Auto) % Lymph % (Auto) % [place] % (Auto) % Eos % (Auto) % Baso % (Auto) % Reticulocyte % (Auto) 1.9 (0.5-2.0) % Neut # (Auto) (1.40-6.50) K/uL Lymph # (Auto) (1.20-3.40) K/uL [place] # (Auto) (0.11-0.59) K/uL Eos # (Auto) (0.00-0.50) K/uL Baso # (Auto) (0.00-0.20) K/uL Reticulocyte # 0.06 (0.02-0.10) 10^6/uL Immature Gran # (Auto) (0.01-0.20) K/uL Polychromasia Hypochromasia Anisocytosis Microcytosis PT (9.0-12.0) Seconds INR (0.9-1.1) APTT (21.0-31.0) Seconds PTT Ratio Sodium (136-145) mmol/L Potassium (3.5-5.1) mmol/L Chloride (98-107) mmol/L Carbon Dioxide (21-32) mmol/L Anion Gap (3-11) BUN (6-23) mg/dl Creatinine (0.6-1.4) mg/dl Est Cr Clr Drug Dosing ml/min Est GFR ( Amer) ml/min Est GFR (Non-Af Amer) ml/min BUN/Creatinine Ratio (10-20) Glucose (70-99(Fasting)) mg/dl Calcium (8.6-10.3) mg/dl Magnesium (1.7-2.4) mg/dl Iron (35-175) mcg/dl Transferrin (200-360) mg/dl Ferritin (8-388) ng/ml Total Bilirubin (0.2-1.0) mg/dl AST (13-39) U/L ALT (7-52) U/L Alkaline Phosphatase (34-104) U/L Total Protein (6.0-8.3) gm/dl Albumin (3.4-5.0) gm/dl Globulin (2.5-4.0) gm/dl Albumin/Globulin Ratio (0.9-2) Vitamin B12 270 (180-914) pg/ml Folate 14.61 (>5.38) ng/ml TSH (0.300-4.500) uIu/ml Ethyl Alcohol mg/dL < 10.0 (<10.0) mg/dl Blood Type Blood Type Recheck Antibody Screen Crossmatch 07/05/23 07/05/23 07/05/23 Range/Units 19:55 19:48 18:14 WBC (4.8-10.8) K/ul RBC (4.70-6.10) M/uL Hgb (14.0-18.0) g/dl Hct (42.0-52.0) % MCV (80.0-100.0) fL MCH (25.0-34.0) pg MCHC (32.0-36.0) g/dL RDW Std Deviation (36.4-46.3) fL RDW Coeff of Star (11.5-14.5) % Plt Count (130-400) K/uL MPV (9.4-12.4) fL Immature Gran % (Auto) % Neut % (Auto) % Lymph % (Auto) % [place] % (Auto) % Eos % (Auto) % Baso % (Auto) % Reticulocyte % (Auto) (0.5-2.0) % Neut # (Auto) (1.40-6.50) K/uL Lymph # (Auto) (1.20-3.40) K/uL [place] # (Auto) (0.11-0.59) K/uL Eos # (Auto) (0.00-0.50) K/uL Baso # (Auto) (0.00-0.20) K/uL Reticulocyte # (0.02-0.10) 10^6/uL Immature Gran # (Auto) (0.01-0.20) K/uL Polychromasia Hypochromasia Anisocytosis Microcytosis PT (9.0-12.0) Seconds INR (0.9-1.1) APTT (21.0-31.0) Seconds PTT Ratio Sodium 133 L (136-145) mmol/L Potassium 4.5 (3.5-5.1) mmol/L Chloride 102 (98-107) mmol/L Carbon Dioxide 23 (21-32) mmol/L Anion Gap 8 (3-11) BUN 18 (6-23) mg/dl Creatinine 1.09 (0.6-1.4) mg/dl Est Cr Clr Drug Dosing 68.9 ml/min Est GFR ( Amer) 85.1 ml/min Est GFR (Non-Af Amer) 73.4 ml/min BUN/Creatinine Ratio 16.5 (10-20) Glucose 105 H (70-99(Fasting)) mg/dl Calcium 9.2 (8.6-10.3) mg/dl Magnesium 2.3 (1.7-2.4) mg/dl Iron 13 L (35-175) mcg/dl Transferrin 399 H (200-360) mg/dl Ferritin 3.2 L (8-388) ng/ml Total Bilirubin 0.8 (0.2-1.0) mg/dl AST 24 (13-39) U/L ALT 29 (7-52) U/L Alkaline Phosphatase 49 (34-104) U/L Total Protein 8.1 (6.0-8.3) gm/dl Albumin 4.6 (3.4-5.0) gm/dl Globulin 3.5 (2.5-4.0) gm/dl Albumin/Globulin Ratio 1.3 (0.9-2) Vitamin B12 (180-914) pg/ml Folate (>5.38) ng/ml TSH (0.300-4.500) uIu/ml Ethyl Alcohol mg/dL (<10.0) mg/dl Blood Type Blood Type Recheck A Positive Antibody Screen Crossmatch 07/05/23 07/05/23 07/05/23 Range/Units 18:14 18:14 18:14 WBC 7.74 (4.8-10.8) K/ul RBC 3.60 L (4.70-6.10) M/uL Hgb 6.6 L* (14.0-18.0) g/dl Hct 23.3 L (42.0-52.0) % MCV 64.7 L (80.0-100.0) fL MCH 18.3 L (25.0-34.0) pg MCHC 28.3 L (32.0-36.0) g/dL RDW Std Deviation 51.4 H (36.4-46.3) fL RDW Coeff of Star 22.5 H (11.5-14.5) % Plt Count 334 (130-400) K/uL MPV 8.3 L (9.4-12.4) fL Immature Gran % (Auto) 0.1 % Neut % (Auto) 64.0 % Lymph % (Auto) 20.8 % [place] % (Auto) 11.6 % Eos % (Auto) 2.3 % Baso % (Auto) 1.2 % Reticulocyte % (Auto) (0.5-2.0) % Neut # (Auto) 4.95 (1.40-6.50) K/uL Lymph # (Auto) 1.61 (1.20-3.40) K/uL [place] # (Auto) 0.90 H (0.11-0.59) K/uL Eos # (Auto) 0.18 (0.00-0.50) K/uL Baso # (Auto) 0.09 (0.00-0.20) K/uL Reticulocyte # (0.02-0.10) 10^6/uL Immature Gran # (Auto) 0.01 (0.01-0.20) K/uL Polychromasia 1+ Hypochromasia Present Anisocytosis Present Microcytosis PT 11.0 (9.0-12.0) Seconds INR 1.0 (0.9-1.1) APTT 23.2 (21.0-31.0) Seconds PTT Ratio 0.8 Sodium (136-145) mmol/L Potassium (3.5-5.1) mmol/L Chloride (98-107) mmol/L Carbon Dioxide (21-32) mmol/L Anion Gap (3-11) BUN (6-23) mg/dl Creatinine (0.6-1.4) mg/dl Est Cr Clr Drug Dosing ml/min Est GFR ( Amer) ml/min Est GFR (Non-Af Amer) ml/min BUN/Creatinine Ratio (10-20) Glucose (70-99(Fasting)) mg/dl Calcium (8.6-10.3) mg/dl Magnesium (1.7-2.4) mg/dl Iron (35-175) mcg/dl Transferrin (200-360) mg/dl Ferritin (8-388) ng/ml Total Bilirubin (0.2-1.0) mg/dl AST (13-39) U/L ALT (7-52) U/L Alkaline Phosphatase (34-104) U/L Total Protein (6.0-8.3) gm/dl Albumin (3.4-5.0) gm/dl Globulin (2.5-4.0) gm/dl Albumin/Globulin Ratio (0.9-2) Vitamin B12 (180-914) pg/ml Folate (>5.38) ng/ml TSH (0.300-4.500) uIu/ml Ethyl Alcohol mg/dL (<10.0) mg/dl Blood Type A Positive Blood Type Recheck Antibody Screen NEGATIVE Crossmatch See Detail Medications Administered Current Inpatient Medications Acetaminophen (Acetaminophen 500 Mg Tab) 500 mg PO Q6H PRN PRN Reason: Pain/Fever Stop: 08/04/23 20:45 Amlodipine Besylate (Amlodipine Besylate 5 Mg Tab) [facility] [place]: 08/05/23 08:59 Last Admin: 07/06/23 08:04 Dose: 10 mg Atorvastatin Calcium (Atorvastatin 40 Mg Tab) 40 mg PO [facility] Stop: 08/05/23 08:59 Last Admin: 07/06/23 08:04 Dose: 40 mg Enalapril Maleate (Enalapril Maleate 10 Mg Tab) [facility] [place] Stop: 08/05/23 08:59 Last Admin: 07/06/23 08:04 Dose: 20 mg Folic Acid (Folic Acid 1 Mg Tab) [facility] [place] Stop: 08/05/23 08:59 Last Admin: 07/06/23 08:04 Dose: 1 mg Sodium Chloride (Nss) 1,000 mls @ 60 mls/hr IV .[id number] Stop: 07/06/23 12:18 Last Admin: 07/05/23 21:31 Dose: 60 mls/hr Pantoprazole Sodium 40 mg/ (Dextrose) 100 mls @ 20 mls/hr IV Q5H STEPHANIE Stop: 08/04/23 20:59 Last Admin: 07/06/23 07:11 Dose: 8 mg/hr, 20 mls/hr Promethazine HCl 6.25 mg/ (Sodium Chloride) 50.25 mls @ 201 mls/hr IV Q6H PRN PRN Reason: Nausea And Vomiting Stop: 08/04/23 20:45 Lorazepam (Lorazepam 2 Mg/1 Ml Vial) 0.5 mg IV Q4H PRN PRN Reason: Anxiety Stop: 08/04/23 20:45 Multivitamins (Multivitamin Tab) 1 tab PO [facility] Stop: 08/05/23 08:59 Last Admin: 07/06/23 08:04 Dose: 1 tab Oxycodone HCl (Oxycodone Hcl Ir 5 Mg Tab (Immediate Release)) 5 mg PO Q4H PRN PRN Reason: Pain Stop: 07/19/23 20:45 Thiamine HCl (Thiamine Hcl 100 Mg Tab) 100 mg PO [facility] Stop: 08/05/23 08:59 Last Admin: 07/06/23 08:04 Dose: 100 mg
--- NOTE | 2023-07-06 11:05 | Gastrointestinal Consultation ---
Date of Consultation July 06, 2023 Assessment & Plan (1) Symptomatic anemia: No signs of GI bleeding. Needs EGD/colonoscopy Saturday to investigate his anemia in the setting of DAPT. History of Present Illness Reason for Consultation: Anemia Attending Physician: Eulalio Prajapati MD History of Present Illness 58 years old male patient with PVD s/p stent placement last month at [facility] [place], started on Plavix, presented now with anemia, fatigue and drop in H/H with no overt ongoing GI bleeding. Transfused PRBC and H/H improved. Denies abdominal pain, nausea or vomiting, no rectal bleeding, never had scopes in the past. Allergies Allergy/AdvReac Type Severity Reaction Status Date / Time Iodinated Contrast Media Allergy Hives Verified 07/05/23 20:08 Home Medications Medication Instructions Recorded Confirmed Type amlodipine 10 mg-benazepril 20 mg 1 cap PO QAM 07/05/23 07/05/23 History capsule aspirin 81 mg tablet,delayed 81 mg PO DAILY 07/05/23 07/05/23 History release atorvastatin 40 mg tablet 40 mg PO QAM 07/05/23 07/05/23 History clopidogrel 75 mg tablet 75 mg PO DAILY 07/05/23 07/05/23 History Patient History Social History Smoking Status: Current some day smoker Hx Alcohol Use: Yes Hx Substance Use: No Preferred Language: [place] Communication Ability: Effective Operation Specialist Required: No Beliefs That Will Affect Care: None Current Living Situation: Alone Feels Safe at Home: Yes Safety Concerns: Feels Safe At This Time Assistive Devices: None Review of Systems Constitutional: no fever, no chills, no fatigue and no weight loss Eyes: no eye pain and no worsening vision Ear, Nose, Mouth, Throat: no tinnitus, no dizziness, no nasal discharge and no epistaxis Respiratory: no cough, no dyspnea, no dyspnea on exertion and no wheezing Cardiovascular: no chest pain, no orthopnea, no palpitations and no edema Gastrointestinal: as per Subjective / HPI Musculoskeletal: no stiffness and no myalgia Neurologic: no localized weakness, no paralysis, no tremor(s) and no headache(s) Endocrine: no polydipsia and no polyuria Hematologic / Lymphatic: no easy bleeding and no night sweats Physical Exam Constitutional: + well hydrated, cooperative and comfortable Eyes: PERRL, conjunctivae normal, anicteric sclerae ENMT: external ear and nose normal, oropharynx normal Neck: normal visual inspection and trachea midline Respiratory: normal respiratory effort, lungs clear to auscultation Auscultation: no wheezes Cardiovascular: RRR, no murmur, no edema Gastrointestinal (Abdomen): normal bowel sounds, soft, nontender, no hepatosplenomegaly Musculoskeletal: no cyanosis or clubbing, extremities motor strength 5/5 Skin: no rashes, warm and dry Neurologic: awake; no focal motor deficits Motor/Sensory: no tremor Results & Data Vital Signs (Past 12 Hours) Vital Signs Temp Pulse Pulse Resp BP BP Pulse Ox 07/06/23 08:15 07/06/23 07:28 36.7 C 82 16 135/68 96 07/06/23 07:08 79 07/06/23 04:20 36.8 C 82 20 137/73 94 07/05/23 23:30 36.5 C 90 18 136/84 98 07/06/23 00:00 36.5 C 83 18 146/68 H 98 07/06/23 00:20 36.9 C 81 18 129/63 96 07/06/23 00:50 37.0 C 80 18 136/66 97 07/06/23 01:05 36.7 C 75 18 137/82 96 07/06/23 01:20 36.5 C 76 18 139/74 94 07/06/23 01:50 36.5 C 74 18 127/70 95 07/06/23 02:50 36.8 C 82 18 137/73 94 07/06/23 03:15 36.6 C 78 18 150/70 H 97 07/06/23 01:05 36.7 C 75 18 137/82 96 07/06/23 00:48 37.0 C 80 18 136/66 97 07/06/23 00:47 37.0 C 80 18 136/66 97 07/05/23 23:26 07/05/23 23:26 36.5 C 90 18 136/84 98 07/05/23 23:24 36.5 C 81 18 149/71 H 98 07/05/23 23:08 36.5 C 91 H 18 136/84 98 07/05/23 23:08 Pulse Ox O2 Del Method O2 Del Method 07/06/23 08:15 Room Air 07/06/23 07:28 Room Air 07/06/23 07:08 07/06/23 04:20 Room Air 07/05/23 23:30 07/06/23 00:00 07/06/23 00:20 07/06/23 00:50 07/06/23 01:05 07/06/23 01:20 07/06/23 01:50 07/06/23 02:50 07/06/23 03:15 07/06/23 01:05 07/06/23 00:48 07/06/23 00:47 07/05/23 23:26 Room Air 07/05/23 23:26 Room Air 07/05/23 23:24 Room Air 07/05/23 23:08 Room Air 07/05/23 23:08 98 Room Air Diagnostic Findings Laboratory Results - last 24 hr 07/05/23 07/05/23 07/05/23 18:14 18:14 18:14 WBC 7.74 RBC 3.60 L Hgb 6.6 L* Hct 23.3 L MCV 64.7 L MCH 18.3 L MCHC 28.3 L RDW Std Deviation 51.4 H RDW Coeff of Star 22.5 H Plt Count 334 MPV 8.3 L Immature Gran % (Auto) 0.1 Neut % (Auto) 64.0 Lymph % (Auto) 20.8 [place] % (Auto) 11.6 Eos % (Auto) 2.3 Baso % (Auto) 1.2 Reticulocyte % (Auto) Neut # (Auto) 4.95 Lymph # (Auto) 1.61 [place] # (Auto) 0.90 H Eos # (Auto) 0.18 Baso # (Auto) 0.09 Reticulocyte # Immature Gran # (Auto) 0.01 Polychromasia 1+ Hypochromasia Present Anisocytosis Present Microcytosis PT 11.0 INR 1.0 APTT 23.2 PTT Ratio 0.8 Sodium Potassium Chloride Carbon Dioxide Anion Gap BUN Creatinine Est Cr Clr Drug Dosing Est GFR ( Amer) Est GFR (Non-Af Amer) BUN/Creatinine Ratio Glucose Calcium Magnesium Iron Transferrin Ferritin Total Bilirubin AST ALT Alkaline Phosphatase Total Protein Albumin Globulin Albumin/Globulin Ratio Vitamin B12 Folate TSH Ethyl Alcohol mg/dL Blood Type A Positive Blood Type Recheck Antibody Screen NEGATIVE Crossmatch See Detail 07/05/23 07/05/23 07/05/23 18:14 19:48 19:55 WBC RBC Hgb Hct MCV MCH MCHC RDW Std Deviation RDW Coeff of Star Plt Count MPV Immature Gran % (Auto) Neut % (Auto) Lymph % (Auto) [place] % (Auto) Eos % (Auto) Baso % (Auto) Reticulocyte % (Auto) Neut # (Auto) Lymph # (Auto) [place] # (Auto) Eos # (Auto) Baso # (Auto) Reticulocyte # Immature Gran # (Auto) Polychromasia Hypochromasia Anisocytosis Microcytosis PT INR APTT PTT Ratio Sodium 133 L Potassium 4.5 Chloride 102 Carbon Dioxide 23 Anion Gap 8 BUN 18 Creatinine 1.09 Est Cr Clr Drug Dosing 68.9 Est GFR ( Amer) 85.1 Est GFR (Non-Af Amer) 73.4 BUN/Creatinine Ratio 16.5 Glucose 105 H Calcium 9.2 Magnesium 2.3 Iron 13 L Transferrin 399 H Ferritin 3.2 L Total Bilirubin 0.8 AST 24 ALT 29 Alkaline Phosphatase 49 Total Protein 8.1 Albumin 4.6 Globulin 3.5 Albumin/Globulin Ratio 1.3 Vitamin B12 Folate TSH Ethyl Alcohol mg/dL Blood Type Blood Type Recheck A Positive Antibody Screen Crossmatch 07/05/23 07/05/23 07/05/23 19:55 19:55 19:55 WBC RBC Hgb Hct MCV MCH MCHC RDW Std Deviation RDW Coeff of Star Plt Count MPV Immature Gran % (Auto) Neut % (Auto) Lymph % (Auto) [place] % (Auto) Eos % (Auto) Baso % (Auto) Reticulocyte % (Auto) 1.9 Neut # (Auto) Lymph # (Auto) [place] # (Auto) Eos # (Auto) Baso # (Auto) Reticulocyte # 0.06 Immature Gran # (Auto) Polychromasia Hypochromasia Anisocytosis Microcytosis PT INR APTT PTT Ratio Sodium Potassium Chloride Carbon Dioxide Anion Gap BUN Creatinine Est Cr Clr Drug Dosing Est GFR ( Amer) Est GFR (Non-Af Amer) BUN/Creatinine Ratio Glucose Calcium Magnesium Iron Transferrin Ferritin Total Bilirubin AST ALT Alkaline Phosphatase Total Protein Albumin Globulin Albumin/Globulin Ratio Vitamin B12 270 Folate 14.61 TSH Ethyl Alcohol mg/dL < 10.0 Blood Type Blood Type Recheck Antibody Screen Crossmatch 07/05/23 07/06/23 07/06/23 19:55 06:49 06:49 WBC 4.80 RBC 4.17 L Hgb 8.6 L Hct 28.9 L MCV 69.3 L D MCH 20.6 L MCHC 29.8 L RDW Std Deviation 54.5 H RDW Coeff of Star 21.9 H Plt Count 266 MPV 8.7 L Immature Gran % (Auto) 0.4 Neut % (Auto) 48.1 Lymph % (Auto) 30.2 [place] % (Auto) 13.8 Eos % (Auto) 5.6 Baso % (Auto) 1.9 Reticulocyte % (Auto) Neut # (Auto) 2.31 Lymph # (Auto) 1.45 [place] # (Auto) 0.66 H Eos # (Auto) 0.27 Baso # (Auto) 0.09 Reticulocyte # Immature Gran # (Auto) 0.02 Polychromasia 2+ Hypochromasia Present Anisocytosis Present Microcytosis Present PT INR APTT PTT Ratio Sodium 136 Potassium 4.1 Chloride 108 H Carbon Dioxide 23 Anion Gap 5 BUN 13 Creatinine 0.86 Est Cr Clr Drug Dosing 89.4 Est GFR ( Amer) 109.2 Est GFR (Non-Af Amer) 94.3 BUN/Creatinine Ratio 15.1 Glucose 103 H Calcium 8.7 Magnesium Iron Transferrin Ferritin Total Bilirubin AST ALT Alkaline Phosphatase Total Protein Albumin Globulin Albumin/Globulin Ratio Vitamin B12 Folate TSH 2.380 Ethyl Alcohol mg/dL Blood Type Blood Type Recheck Antibody Screen Crossmatch
[2023-07-06 12:03] LABS: Hemoglobin 9.3 g/dl (14.0-18.0)
[2023-07-06] MEDS: GABAPENTIN 100 MG CAP PO SCH (15:57)
[2023-07-06] MEDS: CYANOCOBALAMIN (B-12) 500 MCG TABLET PO SCH (18:46)
[2023-07-07] MEDS: PANTOprazole 40 MG in DEXTROSE 5% 100 ML IV SCH ×5 (03:13→22:58)
[2023-07-07 06:42] LABS: Hematocrit (blood only) 29.9 % (42.0-52.0); Hemoglobin 8.9 g/dl (14.0-18.0); Mean Corpuscular Hemoglobin 20.7 pg (25.0-34.0); Mean Corpuscular Hgb Conc 29.8 g/dL (32.0-36.0); Mean Corpuscular Volume 69.5 fL (80.0-100.0); Mean Platelet Volume 8.6 fL (9.4-12.4); Platelet Count 276 K/uL (130-400); RDW Coefficient of Variation 22.5 % (11.5-14.5); RDW Standard Deviation 55.2 fL (36.4-46.3)
[2023-07-07 06:57] LABS: Calcium 9.1 mg/dl (8.6-10.3); Creatinine Clr Calc Pharmacy 76.9 ml/min; Est GFR (African American) 94.4 ml/min; Est GFR (Non-African American) 81.4 ml/min; Magnesium 2.2 mg/dl (1.7-2.4); Phosphorus 4.4 mg/dl (2.5-4.9); Potassium 4.1 mmol/L (3.5-5.1)
--- NOTE | 2023-07-07 08:03 | Hospitalist Progress Note ---
Date of Service July 07, 2023 Assessment & Plan (1) Symptomatic anemia: Plan: Acute on chronic anemia, hemoglobin drop from baseline Secondary to UGIB Positive FOBT at the ER. History PAD status post recent surgery on antiplatelet Rx - reported feet pain/numbness for some time, was hoping the vasc. procedure would resolve this, started gabapentin yesterday -> pt reports improvement Admitted to Medical telemetry Anemia work-up Transfuse PRBC to maintain hemoglobin of at least 8 Appropriate to hold antiplatelet Rx for now given GI bleed causing symptomatic anemia IV PPI GI consult re: GIB - plan EGD/colonoscopy on Sunday 07/08 Ongoing alcohol abuse DT precautions, initiate SARA S if with signs of alcohol withdrawal Hypertension, stable Hyperlipidemia, on statin Rx Hx HCV status post treatment, patient unaware of diagnosis/treatment documented in outpatient records past tobacco abuse DVT prophylaxis. TEDS (chemical prophylaxis contraindicated with GI bleed, SCDs contraindicated with PAD) DNR Patient daughter - Ms. Gerard Mckeon, contact #[phone]. Admission and Anticipated Discharge Date Admission Date: July 05, 2023 Subjective Pt seen in follow up of anemia, melena, pt started on dual antiplatelet therapy after vasc. procedure Currently laying in bed in NAD No fever, chills, chest pain, shortness of breath reports feet pain/ numbness have been bothering him for a long time, was hoping for some relief after vasc. procedure -> started gabapentin yesterday - pt now reports improvement Seen by GI - plan for EGD and colonoscopy on Saturday Review of Systems Review of Systems: All systems reviewed & are unremarkable except as noted in Subjective Physical Exam Physical Exam: GENERAL: WD/WN in NAD HEENT: NC/AT, [place] palpebral conjunctivae, no ptosis NECK : Supple, no tenderness HEART : RRR, no obvious murmurs ABDOMEN: Some distention, nontender, soft, + bowel sounds EXTREMITIES : No LE swelling/tenderness, moves extremities NEUROLOGIC : Coherent, no facial asymmetry, speech fluent, moves extremities SKIN: warm, dry Results & Data Results & Data Vital Signs (Past 12 Hours) Vital Signs Temp Pulse Pulse Resp BP Pulse Ox O2 Del Method 07/07/23 07:59 36.6 C 88 17 134/78 96 Room Air 07/07/23 07:00 74 07/07/23 02:44 36.5 C 85 16 113/76 97 Room Air 07/06/23 22:56 36.6 C 97 H 18 103/72 98 Room Air 07/06/23 22:00 69 07/06/23 23:48 Room Air 07/06/23 22:58 O2 Del Method 07/07/23 07:59 07/07/23 07:00 07/07/23 02:44 07/06/23 22:56 07/06/23 22:00 07/06/23 23:48 07/06/23 22:58 Room Air Laboratory Results 07/07/23 07/07/23 07/06/23 Range/Units 05:39 05:39 11:48 WBC 5.30 (4.8-10.8) K/ul RBC 4.30 L (4.70-6.10) M/uL Hgb 8.9 L 9.3 L (14.0-18.0) g/dl Hct 29.9 L 31.0 L (42.0-52.0) % MCV 69.5 L (80.0-100.0) fL MCH 20.7 L (25.0-34.0) pg MCHC 29.8 L (32.0-36.0) g/dL RDW Std Deviation 55.2 H (36.4-46.3) fL RDW Coeff of Star 22.5 H (11.5-14.5) % Plt Count 276 (130-400) K/uL MPV 8.6 L (9.4-12.4) fL Immature Gran % (Auto) % Neut % (Auto) % Lymph % (Auto) % [place] % (Auto) % Eos % (Auto) % Baso % (Auto) % Neut # (Auto) (1.40-6.50) K/uL Lymph # (Auto) (1.20-3.40) K/uL [place] # (Auto) (0.11-0.59) K/uL Eos # (Auto) (0.00-0.50) K/uL Baso # (Auto) (0.00-0.20) K/uL Immature Gran # (Auto) (0.01-0.20) K/uL Polychromasia Hypochromasia Anisocytosis Microcytosis Sodium 134 L (136-145) mmol/L Potassium 4.1 (3.5-5.1) mmol/L Chloride 104 (98-107) mmol/L Carbon Dioxide 25 (21-32) mmol/L Anion Gap 5 (3-11) BUN 16 (6-23) mg/dl Creatinine 1.00 (0.6-1.4) mg/dl Est Cr Clr Drug Dosing 76.9 ml/min Est GFR ( Amer) 94.4 ml/min Est GFR (Non-Af Amer) 81.4 ml/min BUN/Creatinine Ratio 16.0 (10-20) Glucose 107 H (70-99(Fasting)) mg/dl Calcium 9.1 (8.6-10.3) mg/dl Phosphorus 4.4 (2.5-4.9) mg/dl Magnesium 2.2 (1.7-2.4) mg/dl 07/06/23 07/06/23 Range/Units 06:49 06:49 WBC 4.80 (4.8-10.8) K/ul RBC 4.17 L (4.70-6.10) M/uL Hgb 8.6 L (14.0-18.0) g/dl Hct 28.9 L (42.0-52.0) % MCV 69.3 L D (80.0-100.0) fL MCH 20.6 L (25.0-34.0) pg MCHC 29.8 L (32.0-36.0) g/dL RDW Std Deviation 54.5 H (36.4-46.3) fL RDW Coeff of Star 21.9 H (11.5-14.5) % Plt Count 266 (130-400) K/uL MPV 8.7 L (9.4-12.4) fL Immature Gran % (Auto) 0.4 % Neut % (Auto) 48.1 % Lymph % (Auto) 30.2 % [place] % (Auto) 13.8 % Eos % (Auto) 5.6 % Baso % (Auto) 1.9 % Neut # (Auto) 2.31 (1.40-6.50) K/uL Lymph # (Auto) 1.45 (1.20-3.40) K/uL [place] # (Auto) 0.66 H (0.11-0.59) K/uL Eos # (Auto) 0.27 (0.00-0.50) K/uL Baso # (Auto) 0.09 (0.00-0.20) K/uL Immature Gran # (Auto) 0.02 (0.01-0.20) K/uL Polychromasia 2+ Hypochromasia Present Anisocytosis Present Microcytosis Present Sodium 136 (136-145) mmol/L Potassium 4.1 (3.5-5.1) mmol/L Chloride 108 H (98-107) mmol/L Carbon Dioxide 23 (21-32) mmol/L Anion Gap 5 (3-11) BUN 13 (6-23) mg/dl Creatinine 0.86 (0.6-1.4) mg/dl Est Cr Clr Drug Dosing 89.4 ml/min Est GFR ( Amer) 109.2 ml/min Est GFR (Non-Af Amer) 94.3 ml/min BUN/Creatinine Ratio 15.1 (10-20) Glucose 103 H (70-99(Fasting)) mg/dl Calcium 8.7 (8.6-10.3) mg/dl Phosphorus (2.5-4.9) mg/dl Magnesium (1.7-2.4) mg/dl Medications Administered Current Inpatient Medications Acetaminophen (Acetaminophen 500 Mg Tab) 500 mg PO Q6H PRN PRN Reason: Pain/Fever Stop: 08/04/23 20:45 Amlodipine Besylate (Amlodipine Besylate 5 Mg Tab) 10 mg PO [facility] Stop: 08/05/23 08:59 Last Admin: 07/06/23 08:04 Dose: 10 mg Atorvastatin Calcium (Atorvastatin 40 Mg Tab) 40 mg PO [facility] Stop: 08/05/23 08:59 Last Admin: 07/06/23 08:04 Dose: 40 mg Cyanocobalamin (Cyanocobalamin (B-12) 500 Mcg Tablet) 500 mcg PO [facility] Stop: 08/05/23 18:29 Last Admin: 07/06/23 18:46 Dose: 500 mcg Enalapril Maleate (Enalapril Maleate 10 Mg Tab) 20 mg PO [facility] Stop: 08/05/23 08:59 Last Admin: 07/06/23 08:04 Dose: 20 mg Folic Acid (Folic Acid 1 Mg Tab) 1 mg PO [facility] Stop: 08/05/23 08:59 Last Admin: 07/06/23 08:04 Dose: 1 mg Gabapentin (Gabapentin 100 Mg Cap) 100 mg PO BID [facility] Stop: 08/05/23 15:29 Last Admin: 07/06/23 15:57 Dose: 100 mg Pantoprazole Sodium 40 mg/ (Dextrose) 100 mls @ 20 mls/hr IV Q5H [facility] Stop: 08/04/23 20:59 Last Admin: 07/07/23 03:13 Dose: 8 mg/hr, 20 mls/hr Promethazine HCl 6.25 mg/ (Sodium Chloride) 50.25 mls @ 201 mls/hr IV Q6H PRN PRN Reason: Nausea And Vomiting Stop: 08/04/23 20:45 Lorazepam (Lorazepam 2 Mg/1 Ml Vial) 0.5 mg IV Q4H PRN PRN Reason: Anxiety Stop: 08/04/23 20:45 [facility]ivit[facility] ([facility]itamin Tab) [facility] [place]: 08/05/23 08:59 Last Admin: 07/06/23 08:04 Dose: 1 tab Oxycodone HCl (Oxycodone Hcl Ir 5 Mg Tab (Immediate Release)) 5 mg PO Q4H PRN PRN Reason: Pain Stop: 07/19/23 20:45 Polyethylene Glycol/Electrolytes (Lavage Solution 4000ml) 16 dose PO TODAY@1600 [facility] Stop: 07/07/23 23:59 Thiamine HCl (Thiamine Hcl 100 Mg Tab) 100 mg PO QAM [facility] Stop: 08/05/23 08:59 Last Admin: 07/06/23 08:04 Dose: 100 mg
[2023-07-07] MEDS: amLODIPine BESYLATE 5 MG TAB PO SCH (08:22)
[2023-07-07] MEDS: ATORVASTATIN 40 MG TAB PO SCH (08:22)
[2023-07-07] MEDS: THIAMINE HCL 100 MG TAB PO SCH (08:22)
[2023-07-07] MEDS: FOLIC ACID 1 MG TAB PO SCH (08:22)
[2023-07-07] MEDS: GABAPENTIN 100 MG CAP PO SCH ×2 (08:22→20:29)
[2023-07-07] MEDS: CYANOCOBALAMIN (B-12) 500 MCG TABLET PO SCH (08:22)
[2023-07-07] MEDS: ENALAPRIL MALEATE 10 MG TAB PO SCH (08:22)
[2023-07-07] MEDS: MULTIVITAMIN TAB PO SCH (08:22)
[2023-07-07] MEDS ORDERED: LAVAGE SOLUTION 4000ML PO SCH ×2 (16:00)
[2023-07-08] MEDS: PANTOprazole 40 MG in DEXTROSE 5% 100 ML IV SCH ×2 (03:14→08:25)
[2023-07-08 06:54] LABS: Hemoglobin 8.8 g/dl (14.0-18.0); Mean Corpuscular Hemoglobin 20.5 pg (25.0-34.0); Mean Corpuscular Hgb Conc 29.3 g/dL (32.0-36.0); Mean Corpuscular Volume 69.9 fL (80.0-100.0); Mean Platelet Volume 8.5 fL (9.4-12.4); Platelet Count 265 K/uL (130-400); RDW Coefficient of Variation 22.8 % (11.5-14.5); RDW Standard Deviation 56.5 fL (36.4-46.3); Red Blood Count 4.29 M/uL (4.70-6.10)
[2023-07-08 07:16] LABS: Creatinine Clr Calc Pharmacy 88.5 ml/min; Est GFR (African American) 107.7 ml/min; Est GFR (Non-African American) 92.9 ml/min; Potassium 4.1 mmol/L (3.5-5.1)
--- NOTE | 2023-07-08 08:32 | History & Physical Bridge Note ---
Date of Service July 08, 2023 History & Physical Bridge Note I have examined the patient, reviewed the History & Physical and in the interval since the performance of the History & Physical I have noted the following changes of clinical significance: no changes noted
--- NOTE | 2023-07-08 10:00 | Anesthesiology Consultation ---
Date of Service July 08, 2023 Assessment & Plan Chart Review Chart Review: Acceptable Risk for Surgery Consults Requested none History Surgery Operation Date: 07/08/23 17:00 Proposed Procedures p Colonoscopy EGD Dr. Leach - Lizeth Leach MD Height/Weight Height: 6 ft Weight: 70.9 kg Allergies Allergy/AdvReac Type Severity Reaction Status Date / Time Iodinated Contrast Media Allergy Hives Verified 07/05/23 20:08 Medications Home Medications Medication Instructions Recorded Confirmed Last Taken amlodipine 10 mg-benazepril 20 mg 1 cap PO QAM 07/05/23 07/05/23 07/05/23 11:00 capsule aspirin 81 mg tablet,delayed 81 mg PO DAILY 07/05/23 07/05/23 07/05/23 11:00 release atorvastatin 40 mg tablet 40 mg PO QAM 07/05/23 07/05/23 Unknown clopidogrel 75 mg tablet 75 mg PO DAILY 07/05/23 07/05/23 07/05/23 11:00 Active Medications Generic Name Dose Route Start Last Admin Trade Name Cristopher PRN Reason Stop Dose Admin Amlodipine Besylate 10 mg 07/06/23 09:00 07/07/23 08:22 Amlodipine Besylate 5 Mg Tab PO 08/05/23 08:59 10 mg QAM STEPHANIE Administration Atorvastatin Calcium 40 mg 07/06/23 09:00 07/07/23 08:22 Atorvastatin 40 Mg Tab PO 08/05/23 08:59 40 mg QAM STEPHANIE Administration Cyanocobalamin 500 mcg 07/06/23 18:30 07/07/23 08:22 Cyanocobalamin (B-12) 500 Mcg Tablet PO 08/05/23 18:29 500 mcg QAM STEPHANIE Administration Enalapril Maleate 20 mg 07/06/23 09:00 07/07/23 08:22 Enalapril Maleate 10 Mg Tab PO 08/05/23 08:59 20 mg QAM STEPHANIE Administration Folic Acid 1 mg 07/06/23 09:00 07/07/23 08:22 Folic Acid 1 Mg Tab PO 08/05/23 08:59 1 mg QAM STEPHANIE Administration Gabapentin 100 mg 07/06/23 15:30 07/07/23 20:29 Gabapentin 100 Mg Cap PO 08/05/23 15:29 100 mg BID STEPHANIE Administration Pantoprazole Sodium 40 mg/ 100 mls @ 20 mls/hr 07/05/23 21:00 07/08/23 09:33 Dextrose IV 08/04/23 20:59 0 mg/hr Q5H STEPHANIE 0 mls/hr Infusion 8 MG/HR Multivitamins 1 tab 07/06/23 09:00 07/07/23 08:22 Multivitamin Tab PO 08/05/23 08:59 1 tab QAM STEPHANIE Administration Thiamine HCl 100 mg 07/06/23 09:00 07/07/23 08:22 Thiamine Hcl 100 Mg Tab PO 08/05/23 08:59 100 mg QAM STEPHANIE Administration NPO Date Last Intake of Fluids: 07/08/23 Time Last Intake of Fluids: 00:00 Date Last Intake of Solids: 07/06/23 Social History Smoking Status: Current some day smoker Hx Alcohol Use: Yes Hx Substance Use: No Physical Exam Vital Signs Last Vital Signs Temp 36.4 C L 07/08/23 09:44 Pulse 83 07/08/23 09:44 Resp 18 07/08/23 09:44 BP 156/95 H 07/08/23 09:44 Pulse Ox 99 07/08/23 09:44 O2 Del Method Room Air 07/08/23 09:44 Testing Laboratory Results 07/08/23 06:29 07/08/23 06:29 PT 11.0 Seconds (9.0-12.0) 07/05/23 18:14 INR 1.0 (0.9-1.1) 07/05/23 18:14 APTT 23.2 Seconds (21.0-31.0) 07/05/23 18:14 Blood Type A Positive 07/05/23 18:14 Antibody Screen NEGATIVE 07/05/23 18:14
--- NOTE | 2023-07-08 10:54 | GI REPORT ---
Patient Name: Sorin Mckeon Procedure Date: 07/08/2023 9:46 AM Date of : 1965 Admit Type: Inpatient Age: 58 Gender: Male Attending MD: Lizeth Leach MD, Procedure: Upper GI endoscopy Providers: Lizeth Leach MD Referring MD: Ricardo Sarkar Indications: Anemia Medicines: Propofol per Anesthesia Complications: No immediate complications. Estimated Blood Loss: Estimated blood loss: none. Procedure: Pre-Anesthesia Assessment: - Prior to the procedure, a History and Physical was performed, and patient medications, allergies and sensitivities were reviewed. The patient's tolerance of previous anesthesia was reviewed. - The risks and benefits of the procedure and the sedation options and risks were discussed with the patient. All questions were answered and informed consent was obtained. - Patient identification and proposed procedure were verified prior to the procedure by the physician and the nurse. The procedure was verified in the procedure room. - Pre-procedure physical examination revealed no contraindications to sedation. After obtaining informed consent, the endoscope was passed under direct vision. Throughout the procedure, the patient's blood pressure, pulse, and oxygen saturations were monitored continuously. The Endoscope was introduced through the mouth, and advanced to the fourth part of duodenum. The upper GI endoscopy was accomplished without difficulty. The patient tolerated the procedure well. Findings: [place]-colored mucosa was present. The maximum longitudinal extent of these esophageal mucosal changes was 4 cm in length. A small hiatal hernia was present. The entire examined stomach was normal. A few small angioectasias without bleeding were found in the fourth portion of the duodenum. Vaporization for hemostasis using argon plasma was successful for one of them. 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 - Small hiatal hernia. - Normal stomach. - A few non-bleeding angioectasias in the duodenum. Treated with argon plasma coagulation (APC). Recommendation: - Perform a colonoscopy. - Repeat upper endoscopy in 9 months to biopsy his Farr's esophagus, at that time he should be able to hold his Plavix. Lizeth Leach MD 07/08/2023 10:54:05 AM This report has been signed electronically. Note Initiated On: 07/08/2023 9:46 AM Number of Addenda: 0 I attest to the content of the Intraoperative Record and orders documented therein, exceptions below {[id number]}
[2023-07-08] MEDS ORDERED: PROPOFOL IV EMULSION 10 MG/ML 20 ML VIAL IV ONE (10:58)
[2023-07-08] MEDS ORDERED: LIDOCAINE 2% 2 ML VIAL/AMP(20MG/ML) INFIL ONE (10:58)
--- NOTE | 2023-07-08 10:58 | GI REPORT ---
Patient Name: Sorin Mckeon Procedure Date: 07/08/2023 9:46 AM Date of : 1965 Admit Type: Inpatient Age: 58 Gender: Male Attending MD: Lizeth Leach MD, Procedure: Colonoscopy Providers: Lizeth Leach MD Referring MD: Ricardo Sarkar Indications: Anemia Medicines: Propofol per Anesthesia Complications: No immediate complications. Estimated Blood Loss: Estimated blood loss: none. Procedure: Pre-Anesthesia Assessment: - Prior to the procedure, a History and Physical was performed, and patient medications, allergies and sensitivities were reviewed. The patient's tolerance of previous anesthesia was reviewed. - The risks and benefits of the procedure and the sedation options and risks were discussed with the patient. All questions were answered and informed consent was obtained. - Patient identification and proposed procedure were verified prior to the procedure by the physician and the nurse. The procedure was verified in the procedure room. - Pre-procedure physical examination revealed no contraindications to sedation. After I obtained informed consent, the scope was passed under direct vision. Throughout the procedure, the patient's blood pressure, pulse, and oxygen saturations were monitored continuously. The Colonoscope was introduced through the anus and advanced to the terminal ileum. The colonoscopy was performed without difficulty. The patient tolerated the procedure well. The quality of the bowel preparation was good. The terminal ileum, ileocecal valve, appendiceal orifice, and rectum were photographed. Findings: The perianal and digital rectal examinations were normal. The terminal ileum appeared normal. A 30 mm polyp was found in the sigmoid colon at 25 cm proximal to the anus. The polyp was semi-pedunculated. The polyp was removed with a hot snare. Resection and retrieval were complete. Verification of patient identification for the specimen was done by the physician and nurse using the patient's name and date. The pathology specimen was placed into Bottle A. To prevent bleeding after the polypectomy, one hemostatic clip was successfully placed (MR conditional). Area was tattooed with an injection of 2 mL of Spot (carbon black). Non-bleeding internal hemorrhoids were found during retroflexion. The hemorrhoids were small. Impression: - The examined portion of the ileum was normal. - One 30 mm polyp in the sigmoid colon, removed with a hot snare. Resected and retrieved. Clip (MR conditional) was placed. Tattooed. - Non-bleeding internal hemorrhoids. Recommendation: - [facility]. - Full liquid diet for 1 day, then advance as tolerated to resume regular diet. - No aspirin, ibuprofen, naproxen, or other non-steroidal anti-inflammatory drugs for 5 days. - Resume Plavix (clopidogrel) at prior dose in 3 days. - Repeat colonoscopy for surveillance based on pathology results. Lizeth Leach MD 07/08/2023 10:58:11 AM This report has been signed electronically. Note Initiated On: 07/08/2023 9:46 AM Number of Addenda: 0 I attest to the content of the Intraoperative Record and orders documented therein, exceptions below {[id number]}
[2023-07-08] MEDS ORDERED: ENDOSCOPIC MARKER 5 ML SYR TOP ONE (11:00)
--- NOTE | 2023-07-08 11:31 | Anesthesiology Progress Note ---
Date of Service July 08, 2023 Anesthesia Post Procedure Vital Signs Vital Signs: Temp Pulse Pulse Resp BP Pulse Ox O2 Del Method 07/08/23 11:26 82 16 165/86 H 96 Room Air 07/08/23 11:11 87 16 159/89 H 95 Room Air 07/08/23 10:56 96 H 16 124/85 96 Room Air 07/08/23 09:44 36.4 C L 83 18 156/95 H 99 Room Air 07/08/23 07:40 36.7 C 86 16 142/86 H 97 Room Air 07/08/23 07:20 84 07/08/23 04:53 36.7 C 79 20 126/67 94 Room Air 07/07/23 22:50 74 07/07/23 23:56 36.9 C 62 20 148/75 H 96 Room Air 07/07/23 22:49 07/07/23 21:53 Room Air 07/07/23 20:19 36.3 C L 80 20 174/73 H 98 Room Air 07/07/23 15:00 81 07/07/23 14:57 37.0 C 78 18 146/76 H 97 Room Air 07/07/23 11:34 37.1 C 79 18 132/72 96 Room Air O2 Del Method 07/08/23 11:26 07/08/23 11:11 07/08/23 10:56 07/08/23 09:44 07/08/23 07:40 07/08/23 07:20 07/08/23 04:53 07/07/23 22:50 07/07/23 23:56 07/07/23 22:49 Room Air 07/07/23 21:53 07/07/23 20:19 07/07/23 15:00 07/07/23 14:57 07/07/23 11:34 Transfer of Care Handoff Completed per policy Notes Mental Status: alert / awake / arousable and participated in evaluation Patient Amnestic to Procedure: Yes Nausea / Vomiting: adequately controlled Pain: adequately controlled Airway Patency, RR, SpO2: stable & adequate BP & HR: stable & adequate Hydration State: stable & adequate Anesthetic Complications: no major complications apparent
[2023-07-08] MEDS: ENALAPRIL MALEATE 10 MG TAB PO SCH (12:01)
[2023-07-08] MEDS: FOLIC ACID 1 MG TAB PO SCH (12:01)
[2023-07-08] MEDS: MULTIVITAMIN TAB PO SCH (12:01)
[2023-07-08] MEDS: GABAPENTIN 100 MG CAP PO SCH (12:01)
[2023-07-08] MEDS: CYANOCOBALAMIN (B-12) 500 MCG TABLET PO SCH (12:01)
[2023-07-08] MEDS: ATORVASTATIN 40 MG TAB PO SCH (12:02)
[2023-07-08] MEDS: THIAMINE HCL 100 MG TAB PO SCH (12:02)
[2023-07-08] MEDS: amLODIPine BESYLATE 5 MG TAB PO SCH (12:02)
--- NOTE | 2023-07-08 12:40 | Hospitalist Progress Note ---
Date of Service July 08, 2023 Assessment & Plan (1) Symptomatic anemia: (2) Acute GI bleeding: (3) Colon polyp: (4) Barretts esophagus: Plan Acute on chronic anemia, hemoglobin drop from baseline Secondary to UGIB Positive FOBT at the ER. History PAD status post recent surgery on antiplatelet Rx - reported feet pain/numbness for some time, was hoping the vasc. procedure would resolve this, started gabapentin yesterday -> pt reports improvement underwent EGD showing angioectasia with one of four sites vaporized with APC. Underwent colonoscopy with non-bleeding internal hemorroids and one polyp removed; path pending at time of discharge. Hb stable after two units of blood. Received a Protonix infusion during this admission. Plan is to restart Plavix in 3 days and ASA in 5 days Protonix 40mg PO daily prescribed at discharge with plan for repeat EGD in 9 months. He states the GI specialist recommended iron supplementation. Given the side effects of this including black stools and constipation and that he recently received an iron load with the blood transfusion, we will hold off on starting this until he is seen by his primary care physician. Would like to see how his body stabilizes when Plavix and ASA are added back, then add the iron supplement later. Ongoing alcohol abuse DT precautions, no s/sx of withdrawal during his stay. Alcohol cessation recommended at time of discharge to reduce toxic exposure on GI tract. Hypertension, stable Hyperlipidemia, on statin Rx Hx HCV status post treatment, patient unaware of diagnosis/treatment documented in outpatient records past tobacco abuse At time of discharge he was mentating and ambulating at baseline and tolerating PO He was discharged in stable condition with close primary care follow-up recommended. Arcelia Wilkes DO [facility] Hospitalist Admission and Anticipated Discharge Date Admission Date: July 05, 2023 Subjective 58 yo M with PAD reports recently starting Plavix for PAD s.p stents placed in the last few weeks. He was admitted for symptomatic anemia. Reports feeling fine today States he is eating food and needs to get home to take care of his animals. Denies lightheadedness States the gabapentin helped him for pain and he would like to continue this Reviewed his results and recommendations with he and his sister who is at bedside We discussed avoiding Plavix x 3 days and NSAIDs for 5 days, pathophysiology of Barretts, importance of Protonix even without symptoms of acid reflux any longer and the pros and cons of iron supplementation. He verbalized understanding with intent to comply Physical Exam Physical Exam: CONSTITUTIONAL: WNWD, vitals as above, generally well-appearing, NAD EYES: normal conjunctivae, no scleral icterus ENT: external ear and nose normal, NECK: trachea midline, RESPIRATORY: clear to auscultation bilaterally, no crackles, rales or wheezes, normal respiratory effort CARDIOVASCULAR: regular rate and rhythm, S1 and 2 heard without murmurs, gallops or rubs, no JVD, no peripheral edema CHEST: inspection of chest was normal GASTROINTESTINAL: soft, nontender ND MUSCULOSKELETAL: strength 5/5 throughout, head is normocephalic and atraumatic SKIN: warm and dry NEUROLOGIC: CN 2-12 grossly intact, no sensory deficit, normal cognition, normal speech, no tremor PSYCHIATRIC: alert cooperative and oriented to person, place and time. Euthymic mood, makes good eye contact, language grossly intact, recent and remote memory grossly intact. Results & Data Results & Data Vital Signs (Past 12 Hours) Vital Signs Temp Pulse Pulse Resp BP BP Pulse Ox 07/08/23 12:04 36.5 C 93 H 18 157/100 H 97 07/08/23 11:26 82 16 165/86 H 96 07/08/23 11:11 87 16 159/89 H 95 07/08/23 10:56 96 H 16 124/85 96 07/08/23 09:44 36.4 C L 83 18 156/95 H 99 07/08/23 07:40 36.7 C 86 16 142/86 H 97 07/08/23 07:20 84 07/08/23 04:53 36.7 C 79 20 126/67 94 O2 Del Method 07/08/23 12:04 Room Air 07/08/23 11:26 Room Air 07/08/23 11:11 Room Air 07/08/23 10:56 Room Air 07/08/23 09:44 Room Air 07/08/23 07:40 Room Air 07/08/23 07:20 07/08/23 04:53 Room Air Laboratory Results Short CBC 07/08/23 Range/Units 06:29 WBC 5.30 (4.8-10.8) K/ul Hgb 8.8 L (14.0-18.0) g/dl Hct 30.0 L (42.0-52.0) % Plt Count 265 (130-400) K/uL BMP 07/08/23 06:29 Sodium 138 Potassium 4.1 Chloride 106 Carbon Dioxide 28 BUN 8 Creatinine 0.89 Glucose 102 H Calcium 9.0 Medications Administered Current Inpatient Medications Acetaminophen (Acetaminophen 500 Mg Tab) 500 mg PO Q6H PRN PRN Reason: Pain/Fever Stop: 08/04/23 20:45 Amlodipine Besylate ([facility]odipine [facility] 5 Mg Tab) [facility]: 08/05/23 08:59 Last Admin: 07/08/23 12:02 Dose: 10 mg Atorvastatin Calcium (Atorvastatin 40 Mg Tab) [facility] [place]: 08/05/23 08:59 Last Admin: 07/08/23 12:02 Dose: 40 mg Cyanocobalamin (Cyanocobalamin (B-12) 500 Mcg Tablet) 500 [facility] [place]: 08/05/23 18:29 Last Admin: 07/08/23 12:01 Dose: 500 mcg Enalapril Maleate (Enalapril Maleate 10 Mg Tab) 20 mg PO [facility] Stop: 08/05/23 08:59 Last Admin: 07/08/23 12:01 Dose: 20 mg Folic Acid (Folic Acid 1 Mg Tab) [facility] [place]: 08/05/23 08:59 Last Admin: 07/08/23 12:01 Dose: 1 mg Gabapentin (Gabapentin 100 Mg Cap) 100 mg PO BID [facility] Stop: 08/05/23 15:29 Last Admin: 07/08/23 12:01 Dose: 100 mg Pantoprazole Sodium 40 mg/ (Dextrose) 100 mls @ 20 mls/hr IV Q5H [facility] Stop: 08/04/23 20:59 Last Infusion: 07/08/23 12:02 Dose: 8 mg/hr, 20 mls/hr Promethazine HCl 6.25 mg/ (Sodium Chloride) 50.25 mls @ 201 mls/hr IV Q6H PRN PRN Reason: Nausea And Vomiting Stop: 08/04/23 20:45 Lorazepam (Lorazepam 2 Mg/1 Ml Vial) 0.5 mg IV Q4H PRN PRN Reason: Anxiety Stop: 08/04/23 20:45 Multivitamins (Multivitamin Tab) 1 [facility] [place]: 08/05/23 08:59 Last Admin: 07/08/23 12:01 Dose: 1 tab Oxycodone HCl (Oxycodone Hcl Ir 5 Mg Tab (Immediate Release)) 5 mg PO Q4H PRN PRN Reason: Pain Stop: 07/19/23 20:45 Thiamine HCl (Thiamine Hcl 100 Mg Tab) [facility] [place]: 08/05/23 08:59 Last Admin: 07/08/23 12:02 Dose: 100 mg
--- NOTE | 2023-07-08 13:35 | Discharge Summary ---
Discharge Summary Date of Service July 08, 2023 Notes For Next Care Provider follow-up EGD 9 months biopsy from colon pending at time of discharge repeat CBC in 1 week after restarting Plavix/ASA Medication Changes From Visit please see med rec. Admission HPI Per Admitting Provider History obtained from patient, family, and records. Medical history significant for PAD status post surgery, hypertension, hyperlipidemia, hx HCV status post treatment as per records (patient unaware of diagnosis), chronic anemia (baseline hemoglobin of 7-8), ongoing alcohol abuse, past tobacco abuse. Recent confinement at [facility] under Vascular Surgery service for PVD status post left femoral endarterectomy with pericardial patch angioplasty and subsequent stent placement. 1 unit packed RBC transfused with postprocedural hemoglobin of 6.4. Hemoglobin 8 at time of discharge. Plavix added to patient's aspirin on discharge. Future vascular procedure for right lower extremity contemplated as per patient. Patient did not feel well after first dose of Plavix. Fatigue with intermittent dark stools. No belly pain, no headache. Patient did not mention symptoms to vascular surgeon on follow-up visit last month. Patient seen at PCPs office last June 27 for follow-up visit. Patient verbalized 'feeling off'. Outpatient labs ordered by PCP with hemoglobin noted to be 6.3. Outpatient provider unable to reach patient regarding blood work over the phone as per documentation. Outpatient Arrangements for outpatient colonoscopy made (tentative schedule October,). Outpatient hematology evaluation contemplated. Patient finally returned PCP office call today. Patient directed to ER with patient verbalizing dizziness complaints. Positive FOBT at the ER. Medical History as above Surgical History : Vascular procedures, hernia repair, tonsillectomy, orbital trauma surgery Family History : Heart disease Personal/Social history : Past tobacco abuse, alcohol abuse, [employer] work Principal Dx & Hospital Course #1 = Principal Diagnosis (1) Symptomatic anemia: (2) Acute GI bleeding: (3) Colon polyp: (4) Barretts esophagus: Plan Acute on chronic anemia, hemoglobin drop from baseline Secondary to UGIB Positive FOBT at the ER. History PAD status post recent surgery on antiplatelet Rx - reported feet pain/numbness for some time, was hoping the vasc. procedure would resolve this, started gabapentin yesterday -> pt reports improvement underwent EGD showing angioectasia with one of four sites vaporized with APC. Underwent colonoscopy with non-bleeding internal hemorroids and one polyp removed; path pending at time of discharge. Hb stable after two units of blood. Received a Protonix infusion during this admission. Plan is to restart Plavix in 3 days and ASA in 5 days Protonix 40mg PO daily prescribed at discharge with plan for repeat EGD in 9 months. He states the GI specialist recommended iron supplementation. Given the side effects of this including black stools and constipation and that he recently received an iron load with the blood transfusion, we will hold off on starting this until he is seen by his primary care physician. Would like to see how his body stabilizes when Plavix and ASA are added back, then add the iron supplement later. Ongoing alcohol abuse DT precautions, no s/sx of withdrawal during his stay. Alcohol cessation recommended at time of discharge to reduce toxic exposure on GI tract. Hypertension, stable Hyperlipidemia, on statin Rx Hx HCV status post treatment, patient unaware of diagnosis/treatment documented in outpatient records past tobacco abuse At time of discharge he was mentating and ambulating at baseline and tolerating PO He was discharged in stable condition with close primary care follow-up recommended. DO Herminio [facility]en[facility] Hospitalist Discharge Exam CONSTITUTIONAL: WNWD, vitals as above, generally well-appearing, NAD EYES: normal conjunctivae, no scleral icterus ENT: external ear and nose normal, NECK: trachea midline, RESPIRATORY: clear to auscultation bilaterally, no crackles, rales or wheezes, normal respiratory effort CARDIOVASCULAR: regular rate and rhythm, S1 and 2 heard without murmurs, gallops or rubs, no JVD, no peripheral edema CHEST: inspection of chest was normal GASTROINTESTINAL: soft, nontender ND MUSCULOSKELETAL: strength 5/5 throughout, head is normocephalic and atraumatic SKIN: warm and dry NEUROLOGIC: CN 2-12 grossly intact, no sensory deficit, normal cognition, normal speech, no tremor PSYCHIATRIC: alert cooperative and oriented to person, place and time. Euthymic mood, makes good eye contact, language grossly intact, recent and remote memory grossly intact. Updated Medication List Medication Instructions Recorded Confirmed Type amlodipine 10 mg-benazepril 20 mg 1 cap PO QAM 07/05/23 07/05/23 History capsule aspirin 81 mg tablet,delayed 81 mg PO DAILY 07/05/23 07/05/23 History release atorvastatin 40 mg tablet 40 mg PO QAM 07/05/23 07/05/23 History clopidogrel 75 mg tablet 75 mg PO DAILY 07/05/23 07/05/23 History gabapentin 100 mg capsule 100 mg PO BID #60 caps 07/08/23 Rx pantoprazole 40 mg tablet,delayed 40 mg PO DAILY #30 tabs 07/08/23 Rx release (Protonix) Hospital Stay Data Consultations 07/05/23 19:27 ED Decision to Admit Stat 07/05/23 23:08 Consult Gastroenterology Routine Procedures Performed Operation Date: 07/08/23 17:00 Actual Procedures p EGD Hemostasis - Lizeth Leach MD s Colonoscopy Polypectomy - Lizeth Leach MD Pending Results Patient Have Any Pending Studies at Discharge: Yes Discharge Instructions Given to Patient (Per Discharging Provider) Please take all medications as instructed on discharge list below. PLEASE RESUME PLAVIX IN 3 DAYS, AND ASPIRIN IN 5 DAYS. PLEASE AVOID ALCOHOL. PLEASE AVOID MOTRIN, IBUPROFEN, NAPROXEN, ALEVE OR OTHER OTC BLOOD THINNERS. You have been diagnosed with Farr's esophagus, which is a condition that represents a change in the mucosa of the esophagus, typically as a result of chronic acid reflux that may predispose a person to cancer. Your upper endoscopy also revealed a few small angioectasias without bleeding in your small intestine. One of these was cauterized during the procedure. Treatment for this includes once daily protonix to take even without any symptoms of heartburn. You will need a repeat surveillance endoscopy in 9 months. Please follow-up with [facility] for this. Please continue on a full liquid diet for the next 24 hours, then advance diet as tolerated. You underwent a colonoscopy with removal of a polyp, with the surgical pathology pending at time of discharge. Please follow-up with your primary care provider in one week to see the results of this and to obtain repeat blood work including CBC and BMP. You were also found to have nonbleeding internal hemorrhoids. You were given two units of blood for anemia during this hospital stay, which is also an iron infusion. Prior to starting iron supplementation, please follow-up with your primary care physician to ensure you are doing well with normal stools on the Plavix. Iron may change your stool to black and cause constipation which may complicate the clinical picture if started too soon after discharge. You were started on GABAPENTIN for pain in your legs. This dose may need to be increased to effect, which can be done by your primary care physician on follow- up. It was a pleasure taking care of you! Please call if you have any questions or problems. You can reach a [facility] hospitalist on duty at [facility] 24 hours a day by calling [phone]. Take care of yourself. Arcelia Wilkes, DO [facility] Total Time Total Time Spent Total Time Spent (In Minutes): 60
== END 2023-07-08 14:30 | disposition home or self-care (01) ==
LOC: ED 15:47 → SUATTDRO 20:44 → 2N 20:44 → INTOOBSV 20:44 → 2N 22:22